=== PATIENT | female | born 1950 | race African-American/Black ===

== ENCOUNTER 2016-11-16 08:36 | Inpatient (IN) | payer MEDICAID, MEDICARE ==
[~2016-11-16] VITALS: Ht 182.9 cm; Wt 124.6 kg
[~2016-11-16 08:36] MED LIST: ALBU8.5H5 INH; ALLO100T30 PO; ASPI325T4 PO; ATEN100T PO; ATEN50TA41 PO; DARB100D PO; FLUT16SP2 NAS; FLUT9.9S NS; FURO40TA6 PO; HOME OXYGEN INH; HYDR-3240 PO; HYDR25TA11 PO; INSU100I18 SQ-INSULIN; INSU100V; INSU100V3 SQ; LEVO100T5 PO; LOVA40TA2 PO; METO5TAB5 PO; MULT-717 PO; OMEP-110 PO; OMEP20TA62 PO; OXYC5CAP4 PO; OXYM15MI4 NS; POLY17PO5 PO; SODI104S3 NAS; SODI30SP NS; SPIR25TA3 PO; TRAM50TA2 PO; [UNRECOGNIZED DRUG - CODE] SQ
[2016-11-16] MEDS ORDERED: CEFTRIAXONE PMX 2GM/50ML 50 ML IV ONE (10:00)
[2016-11-16] MEDS ORDERED: MORPHINE SULFATE 4 MG/ML, 1ML IVPush PRN (10:00)
[2016-11-16] MEDS ORDERED: SODIUM CHLORIDE FLUSH 10ML SYR IVF ONE (10:00)
[2016-11-16] MEDS ORDERED: ONDANSETRON 2MG/ML, 2ML IVPush ONE (10:00)
[2016-11-16] MEDS ORDERED: ONDANSETRON 2MG/ML, 2ML ONE (10:18)
[2016-11-16] MEDS ORDERED: MORPHINE SULFATE 4 MG/ML, 1ML ONE (10:18)
[2016-11-16 10:41] LABS: ASPARTATE AMINO TRANSFERASE 17 U/L (15-37)
[2016-11-16 10:47] LABS: BLOOD UREA NITROGEN 156 mg/dL (7-18); HEMOGLOBIN 7.1 g/dL (11.7-16.4)
[2016-11-16] MEDS ORDERED: DEXTROSE 50%, 50ML SYRINGE IVPush ONE ×2 (11:00→16:19)
[2016-11-16] MEDS ORDERED: SODIUM CHLORIDE 0.9%, 500ML IVBOLUS ONE (11:00)
[2016-11-16] MEDS ORDERED: INSULIN REGULAR 100 UNITS/ML, 3ML VIAL IVPush ONE (11:00)
[2016-11-16] MEDS ORDERED: SODIUM POLYSTYRENE SULFONATE ORAL SUSP PO ONE ×2 (11:00→16:30)
[2016-11-16] MEDS: HEPARIN 5,000 UNITS/ML, 1ML SQ SCH ×2 (12:00→20:00)
[2016-11-16] MEDS ORDERED: HYDROcodone/APAP 5/325 TABLET PO PRN (12:00)
[2016-11-16] MEDS ORDERED: [UNRECOGNIZED DRUG - OTHER] INH SCH (12:00)
[2016-11-16] MEDS ORDERED: ACETAMINOPHEN 325 MG TABLET PO PRN (12:00)
[2016-11-16] MEDS ORDERED: ONDANSETRON 2MG/ML, 2ML IVP PRN (12:00)
[2016-11-16] MEDS ORDERED: BISACODYL 10 MG SUPP PR PRN (12:00)
[2016-11-16] MEDS ORDERED: ALBUTEROL SULFATE 2.5 MG/3 ML HHN PRN (12:30)
[2016-11-16 12:33] VITALS: BP 142/59
[2016-11-16 12:52] VITALS: BP 142/59
[2016-11-16] MEDS: ALLOPURINOL 100 MG TABLET PO SCH (13:12)
[2016-11-16] MEDS: SPIRONOLACTONE 25 MG TABLET PO SCH (13:12)
[2016-11-16] MEDS: SEVELAMER 800MG TABLET PO SCH ×2 (14:00→16:12)
[2016-11-16] MEDS: INSULIN REGULAR 100 UNITS/ML, 3ML VIAL SQ-INSULIN SCH ×2 (16:00→21:00)
[2016-11-16] MEDS: OXYcodone IR 5MG TABLET PO SCH ×2 (16:09→22:12)
[2016-11-16] MEDS ORDERED: INSULIN REGULAR 100 UNITS/ML, 3ML VIAL IVPush STA (16:19)
[2016-11-16] MEDS ORDERED: SODIUM BICARBONATE 1 MEQ/ML, 50ML VIAL IVPush ONE (16:19)
[2016-11-16 19:34] VITALS: BP 103/34
[2016-11-17 02:18] VITALS: BP 119/75
[2016-11-17] MEDS: HEPARIN 5,000 UNITS/ML, 1ML SQ SCH ×3 (04:00→20:00)
[2016-11-17] MEDS: OXYcodone IR 5MG TABLET PO SCH ×4 (06:09→20:50)
[2016-11-17] MEDS: INSULIN REGULAR 100 UNITS/ML, 3ML VIAL SQ-INSULIN SCH ×4 (07:00→20:50)
[2016-11-17 07:46] VITALS: BP 134/56
[2016-11-17 07:48] LABS: ASPARTATE AMINO TRANSFERASE 19 U/L (15-37); HEMOGLOBIN 7.5 g/dL (11.7-16.4)
[2016-11-17] MEDS: SEVELAMER 800MG TABLET PO SCH ×3 (08:00→16:38)
[2016-11-17 08:04] LABS: BLOOD UREA NITROGEN 169 mg/dL (7-18)
[2016-11-17 08:09] LABS: DIFF TOTAL CELLS COUNTED 100 CELL DIFF
[2016-11-17 08:11] LABS: VERIFY COUNTS? YES
[2016-11-17 08:12] LABS: ANISOCYTOSIS 1+
[2016-11-17 08:13] LABS: LARGE PLATELETS 1+
[2016-11-17] MEDS ORDERED: LEVOTHYROXINE 100 MCG TABLET PO SCH (09:00)
[2016-11-17] MEDS: SPIRONOLACTONE 25 MG TABLET PO SCH (09:00)
[2016-11-17] MEDS: ALBUTEROL/IPRATROPIUM 2.5MG/0.5MG, 3 ML NPPB SCH ×2 (09:00→22:18)
[2016-11-17] MEDS: SENNA/DOCUSATE TABLET PO SCH (09:00)
[2016-11-17] MEDS ORDERED: MULTIVITAMINS/MINERALS TABLET PO SCH (09:00)
[2016-11-17] MEDS ORDERED: LOVASTATIN 40 MG TABLET PO SCH (09:00)
[2016-11-17] MEDS: ALLOPURINOL 100 MG TABLET PO SCH (09:35)
[2016-11-17] MEDS: ASPIRIN 81 MG TABLET EC PO SCH (09:35)
[2016-11-17] MEDS: SODIUM CHLORIDE NASAL SPRAY 45ML BOTTLE NAS SCH (12:29)
[2016-11-17] MEDS: FLUTICASONE NASAL SPRAY 16GM NAS SCH (12:29)
[2016-11-17 13:55] VITALS: BP 97/44
[2016-11-17] MEDS: LOVASTATIN 40 MG TABLET PO SCH (20:50)
[2016-11-17 20:55] VITALS: BP 149/78
[2016-11-18 01:06] VITALS: BP 122/66
[2016-11-18] MEDS: HEPARIN 5,000 UNITS/ML, 1ML SQ SCH ×3 (04:00→20:00)
[2016-11-18 05:37] LABS: HEMOGLOBIN 7.3 g/dL (11.7-16.4)
[2016-11-18 06:03] LABS: BLOOD UREA NITROGEN 112 mg/dL (7-18)
[2016-11-18] MEDS: LEVOTHYROXINE 100 MCG TABLET PO SCH (06:22)
[2016-11-18] MEDS: OXYcodone IR 5MG TABLET PO SCH ×4 (06:22→20:02)
[2016-11-18] MEDS: INSULIN REGULAR 100 UNITS/ML, 3ML VIAL SQ-INSULIN SCH ×4 (07:00→20:02)
[2016-11-18] MEDS: SEVELAMER 800MG TABLET PO SCH (08:00)
[2016-11-18 08:06] VITALS: BP 145/69
[2016-11-18 08:36] LABS: HEP B SURF. AB < 3.1 mIU/mL (0.0-10.0)
[2016-11-18] MEDS: SENNA/DOCUSATE TABLET PO SCH (09:00)
[2016-11-18] MEDS: FLUTICASONE NASAL SPRAY 16GM NAS SCH (09:00)
[2016-11-18] MEDS: SODIUM CHLORIDE NASAL SPRAY 45ML BOTTLE NAS SCH (09:00)
[2016-11-18] MEDS: ALBUTEROL/IPRATROPIUM 2.5MG/0.5MG, 3 ML NPPB SCH (09:00)
[2016-11-18] MEDS: SPIRONOLACTONE 25 MG TABLET PO SCH (09:22)
[2016-11-18] MEDS: FERROUS SULFATE 325 MG TABLET PO SCH ×2 (09:22→17:46)
[2016-11-18] MEDS: ASPIRIN 81 MG TABLET EC PO SCH (09:22)
[2016-11-18] MEDS: ATENOLOL 50 MG TABLET PO SCH (09:22)
[2016-11-18] MEDS: ALLOPURINOL 100 MG TABLET PO SCH (09:22)
[2016-11-18] MEDS ORDERED: CALCIUM ACETATE 667 MG CAPSULE PO SCH (11:30)
[2016-11-18] MEDS: CALCIUM ACETATE 667 MG CAPSULE PO SCH ×2 (12:00→17:46)
[2016-11-18] MEDS ORDERED: ARANESP 100 MCG/ML **ESRD SQ SCH (14:00)
[2016-11-18 15:03] VITALS: BP 157/70
[2016-11-18] MEDS ORDERED: ALBUTEROL/IPRATROPIUM 2.5MG/0.5MG, 3 ML ONE (18:20)
[2016-11-18] MEDS: LOVASTATIN 40 MG TABLET PO SCH (20:02)
[2016-11-18] MEDS: MULTIVITAMINS/MINERALS TABLET PO SCH (20:02)
[2016-11-18 20:10] VITALS: BP 132/83
[2016-11-18] MEDS ORDERED: ALBUTEROL/IPRATROPIUM 2.5MG/0.5MG, 3 ML NPPB PRN (21:00)
[2016-11-19 02:42] VITALS: BP 139/71
[2016-11-19 03:32] LABS: HEMOGLOBIN 7.4 g/dL (11.7-16.4)
[2016-11-19 03:49] LABS: BLOOD UREA NITROGEN 122 mg/dL (7-18)
[2016-11-19] MEDS: HEPARIN 5,000 UNITS/ML, 1ML SQ SCH ×3 (03:58→19:37)
[2016-11-19] MEDS: OXYcodone IR 5MG TABLET PO SCH ×4 (05:26→21:07)
[2016-11-19] MEDS: LEVOTHYROXINE 100 MCG TABLET PO SCH (05:27)
[2016-11-19 06:52] VITALS: BP 132/54
[2016-11-19] MEDS: INSULIN REGULAR 100 UNITS/ML, 3ML VIAL SQ-INSULIN SCH ×4 (07:00→21:14)
[2016-11-19] MEDS: CALCIUM ACETATE 667 MG CAPSULE PO SCH ×3 (08:00→17:00)
[2016-11-19] MEDS: FERROUS SULFATE 325 MG TABLET PO SCH ×2 (08:59→17:45)
[2016-11-19] MEDS: ASPIRIN 81 MG TABLET EC PO SCH (08:59)
[2016-11-19] MEDS: CINACALCET 30 MG TABLET PO SCH (09:00)
[2016-11-19] MEDS: SENNA/DOCUSATE TABLET PO SCH (09:00)
[2016-11-19] MEDS: ALLOPURINOL 100 MG TABLET PO SCH (09:00)
[2016-11-19] MEDS: FLUTICASONE NASAL SPRAY 16GM NAS SCH (09:00)
[2016-11-19] MEDS: SODIUM CHLORIDE NASAL SPRAY 45ML BOTTLE NAS SCH (09:00)
[2016-11-19] MEDS: SPIRONOLACTONE 25 MG TABLET PO SCH (09:00)
[2016-11-19] MEDS: IRON SUCROSE COMPLEX 100MG/5ML IV SCH (09:00)
[2016-11-19 12:42] VITALS: BP 130/50
[2016-11-19 20:22] VITALS: BP 141/65
[2016-11-19] MEDS: LOVASTATIN 40 MG TABLET PO SCH (21:07)
[2016-11-19] MEDS: MULTIVITAMINS/MINERALS TABLET PO SCH (21:08)
[2016-11-20 03:00] VITALS: BP 142/76
[2016-11-20] MEDS: HEPARIN 5,000 UNITS/ML, 1ML SQ SCH ×3 (04:00→20:00)
[2016-11-20 05:27] LABS: BLOOD UREA NITROGEN 72 mg/dL (7-18)
[2016-11-20 05:31] LABS: HEMOGLOBIN 7.3 g/dL (11.7-16.4)
[2016-11-20] MEDS: OXYcodone IR 5MG TABLET PO SCH ×4 (06:16→22:33)
[2016-11-20] MEDS: LEVOTHYROXINE 100 MCG TABLET PO SCH (06:16)
[2016-11-20 06:52] VITALS: BP 156/62
[2016-11-20] MEDS: INSULIN REGULAR 100 UNITS/ML, 3ML VIAL SQ-INSULIN SCH ×4 (07:00→21:00)
[2016-11-20] MEDS: CALCIUM ACETATE 667 MG CAPSULE PO SCH ×3 (08:00→17:00)
[2016-11-20] MEDS: FLUTICASONE NASAL SPRAY 16GM NAS SCH (08:17)
[2016-11-20] MEDS: SODIUM CHLORIDE NASAL SPRAY 45ML BOTTLE NAS SCH (08:18)
[2016-11-20] MEDS: ALLOPURINOL 100 MG TABLET PO SCH (08:19)
[2016-11-20] MEDS: CINACALCET 30 MG TABLET PO SCH (08:19)
[2016-11-20] MEDS: FERROUS SULFATE 325 MG TABLET PO SCH ×2 (08:19→17:00)
[2016-11-20] MEDS: SPIRONOLACTONE 25 MG TABLET PO SCH (08:20)
[2016-11-20] MEDS: ASPIRIN 81 MG TABLET EC PO SCH (08:20)
[2016-11-20] MEDS: ATENOLOL 50 MG TABLET PO SCH ×2 (08:20→09:00)
[2016-11-20] MEDS: SENNA/DOCUSATE TABLET PO SCH (08:21)
[2016-11-20] MEDS: IRON SUCROSE COMPLEX 100MG/5ML IV SCH (08:21)
[2016-11-20] MEDS ORDERED: PARICALCITOL 2 MCG/ML, 1ML IVPush PRN (09:00)
[2016-11-20 12:45] VITALS: BP 187/71
[2016-11-20 20:17] VITALS: BP 169/70
[2016-11-20] MEDS: MULTIVITAMINS/MINERALS TABLET PO SCH (21:00)
[2016-11-20] MEDS: LOVASTATIN 40 MG TABLET PO SCH (22:33)
[2016-11-21 02:50] VITALS: BP 126/58
[2016-11-21] MEDS: HEPARIN 5,000 UNITS/ML, 1ML SQ SCH ×3 (04:00→20:00)
[2016-11-21] MEDS: LEVOTHYROXINE 100 MCG TABLET PO SCH (05:43)
[2016-11-21] MEDS: OXYcodone IR 5MG TABLET PO SCH ×4 (05:43→20:33)
[2016-11-21] MEDS: INSULIN REGULAR 100 UNITS/ML, 3ML VIAL SQ-INSULIN SCH ×4 (07:00→20:27)
[2016-11-21 07:12] VITALS: BP 123/71
[2016-11-21] MEDS: CALCIUM ACETATE 667 MG CAPSULE PO SCH ×3 (08:00→17:00)
[2016-11-21] MEDS: FERROUS SULFATE 325 MG TABLET PO SCH ×2 (08:00→17:00)
[2016-11-21] MEDS: SENNA/DOCUSATE TABLET PO SCH (09:00)
[2016-11-21] MEDS: IRON SUCROSE COMPLEX 100MG/5ML IV SCH (09:00)
[2016-11-21] MEDS: CINACALCET 30 MG TABLET PO SCH (09:00)
[2016-11-21] MEDS: FLUTICASONE NASAL SPRAY 16GM NAS SCH (09:47)
[2016-11-21] MEDS: SODIUM CHLORIDE NASAL SPRAY 45ML BOTTLE NAS SCH (09:48)
[2016-11-21] MEDS: ASPIRIN 81 MG TABLET EC PO SCH (09:49)
[2016-11-21] MEDS: ALLOPURINOL 100 MG TABLET PO SCH (09:50)
[2016-11-21] MEDS: SPIRONOLACTONE 25 MG TABLET PO SCH (09:51)
[2016-11-21] MEDS ORDERED: MINO2.5T PO (10:01)
[2016-11-21] MEDS ORDERED: ATEN25TA PO (10:01)
[2016-11-21 12:37] VITALS: BP 168/61
[2016-11-21] MEDS: MULTIVITAMINS/MINERALS TABLET PO SCH (20:28)
[2016-11-21] MEDS: LOVASTATIN 40 MG TABLET PO SCH (20:33)
[2016-11-21 20:40] VITALS: BP 192/76
[2016-11-21] MEDS: ATENOLOL 50 MG TABLET PO SCH (21:33)
[2016-11-21 23:38] VITALS: BP 186/74
[2016-11-22] MEDS ORDERED: hydrALAzine 20 MG/ML, 1ML IV PRN
[2016-11-22 01:45] VITALS: BP 110/57
[2016-11-22] MEDS: HEPARIN 5,000 UNITS/ML, 1ML SQ SCH (04:00)
[2016-11-22] MEDS: LEVOTHYROXINE 100 MCG TABLET PO SCH (05:56)
[2016-11-22] MEDS: OXYcodone IR 5MG TABLET PO SCH ×2 (05:56→11:26)
[2016-11-22] MEDS: INSULIN REGULAR 100 UNITS/ML, 3ML VIAL SQ-INSULIN SCH ×2 (07:00→11:00)
[2016-11-22 08:31] VITALS: BP 126/45
[2016-11-22] MEDS: ALLOPURINOL 100 MG TABLET PO SCH (08:53)
[2016-11-22] MEDS: ASPIRIN 81 MG TABLET EC PO SCH (08:54)
[2016-11-22] MEDS: SPIRONOLACTONE 25 MG TABLET PO SCH (08:55)
[2016-11-22] MEDS: FLUTICASONE NASAL SPRAY 16GM NAS SCH (08:56)
[2016-11-22] MEDS ORDERED: CINA30TA PO (09:51)
[2016-11-22] MEDS ORDERED: FERR325T20 PO (09:51)
[2016-11-22] MEDS ORDERED: CALC667C PO (09:51)
[2016-11-22 13:23] VITALS: BP 155/72
== END 2016-11-22 13:02 | disposition home health service (06) | DRG 291 ==
LOC: ED 09:54 → EDIP 10:57 → 4WST 12:02 → 4EST 14:34
PROVIDERS: ADMIT Internal Medicine; ATTEND Internal Medicine
PROC: 02HV33Z Insertion of Infusion Device into Superior Vena Cava, Percutaneous Approach (ICD-10-PCS; principal; 2016-11-16)
PROC: B548ZZA Ultrasonography of Superior Vena Cava, Guidance (ICD-10-PCS; 2016-11-16)
PROC: 5A1D60Z (ICD-10-PCS; 2016-11-17)
DX: I13.2 Hypertensive heart and chronic kidney disease with heart failure and with stage 5 chronic kidney disease, or end stage renal disease (principal); J96.21 Acute and chronic respiratory failure with hypoxia; N18.6 End stage renal disease; J98.11 Atelectasis; E44.0 Moderate protein-calorie malnutrition; D68.69 Other thrombophilia; E87.70 Fluid overload, unspecified; I50.9 Heart failure, unspecified; D63.1 Anemia in chronic kidney disease; E03.9 Hypothyroidism, unspecified; E11.22 Type 2 diabetes mellitus with diabetic chronic kidney disease; E11.65 Type 2 diabetes mellitus with hyperglycemia; E78.5 Hyperlipidemia, unspecified; E87.5 Hyperkalemia; I25.10 Atherosclerotic heart disease of native coronary artery without angina pectoris; E83.39 Other disorders of phosphorus metabolism; I48.0 Paroxysmal atrial fibrillation; S81.801A Unspecified open wound, right lower leg, initial encounter; J44.9 Chronic obstructive pulmonary disease, unspecified; M10.9 Gout, unspecified; Z66 Do not resuscitate; Z79.4 Long term (current) use of insulin; Z86.73 Personal history of transient ischemic attack (TIA), and cerebral infarction without residual deficits; Z89.512 Acquired absence of left leg below knee; Z90.49 Acquired absence of other specified parts of digestive tract; Z91.14 Patient's other noncompliance with medication regimen; Z93.3 Colostomy status; Z99.2 Dependence on renal dialysis; Z99.81 Dependence on supplemental oxygen; Z68.37 Body mass index [BMI] 37.0-37.9, adult; Z88.6 Allergy status to analgesic agent; Z88.0 Allergy status to penicillin; Z88.2 Allergy status to sulfonamides; Z88.8 Allergy status to other drugs, medicaments and biological substances
CPT/HCPCS: 36415; 36569; 71010; 76937; 77001; 80048; 80053; 80069; 81001; 82728; 82962; 83540; 83550; 83605; 83735; 83880; 83970; 84100; 84145; 85025; 85045; 85730; 86704; 86706; 87086; 87340; 93005; 94640; 99285; J1815; J7620; C1751; Q0177

== ENCOUNTER 2017-02-28 19:12 | Inpatient (IN) | payer MEDICARE ==
[~2017-02-28] VITALS: Ht 182.9 cm; Wt 102.6 kg
[~2017-02-28 19:12] MED LIST changes: +ATEN25TA PO; +CALC667C PO; +CINA30TA PO; +FERR325T20 PO; +MINO2.5T PO
[2017-02-28] MEDS: PLEASE ENTER HEIGHT AND WEIGHT MC SCH (19:30)
[2017-02-28] MEDS ORDERED: SODIUM CHLORIDE FLUSH 10ML SYR IVF ONE (19:30)
[2017-02-28] MEDS ORDERED: ONDANSETRON 2MG/ML, 2ML IVPush ONE (19:30)
[2017-02-28 19:56] LABS: ASPARTATE AMINO TRANSFERASE 16 U/L (15-37); BLOOD UREA NITROGEN 53 mg/dL (7-18)
[2017-02-28 20:09] LABS: DIFF TOTAL CELLS COUNTED 100 CELL DIFF
[2017-02-28 20:12] LABS: VERIFY COUNTS? YES
[2017-02-28 20:13] LABS: ANISOCYTOSIS 1+; MICROCYTOSIS 1+; OVALOCYTES 1+; SCHISTOCYTES 1+; SPHEROCYTES 1+
[2017-02-28 20:14] LABS: LARGE PLATELETS 1+; POLYCHROMASIA 1+
[2017-02-28] MEDS ORDERED: ONDANSETRON 2MG/ML, 2ML ONE (20:31)
[2017-02-28] MEDS ORDERED: HYDROmorphone 1 MG/ML, 1ML ONE ×2 (20:31→22:19)
[2017-02-28] MEDS: HYDROmorphone 1 MG/ML, 1ML IVPush PRN ×2 (20:46→22:25)
[2017-02-28] MEDS ORDERED: VANCOMYCIN 2,000 MG in SODIUM CHLORIDE 0.9% 500 ML IV ONE (21:00)
[2017-02-28] MEDS ORDERED: SODIUM CHLORIDE FLUSH 10ML SYR IVF PRN (21:00)
[2017-02-28] MEDS ORDERED: VANCOMYCIN PER PHARMACY MC ONE (21:00)
[2017-02-28] MEDS ORDERED: CEFEPIME 1 GM in DEXTROSE 5% 50 ML IV ONE (21:00)
[2017-02-28] MEDS ORDERED: PHARMACOKINETIC CONSULTATION MC ONE (21:00)
[2017-02-28] MEDS ORDERED: ACETAMINOPHEN 500 MG TABLET ONE (21:43)
[2017-02-28] MEDS ORDERED: MEROPENEM 500 MG in SODIUM CHLORIDE 0.9% 100 ML IV ONE (22:00)
[2017-02-28] MEDS ORDERED: ACETAMINOPHEN 500 MG TABLET PO ONE (22:00)
[2017-02-28] MEDS ORDERED: VANCOMYCIN PER PHARMACY MC PRN (22:00)
[2017-02-28] MEDS ORDERED: hydrALAzine 20 MG/ML, 1ML IVPush PRN (22:30)
[2017-02-28] MEDS ORDERED: BISACODYL 10 MG SUPP PR PRN (22:30)
[2017-02-28] MEDS ORDERED: ONDANSETRON 2MG/ML, 2ML IVPush PRN (22:30)
[2017-02-28] MEDS ORDERED: ACETAMINOPHEN 325 MG TABLET PO PRN (22:30)
[2017-02-28] MEDS ORDERED: MEROPENEM 500 MG in SODIUM CHLORIDE 0.9% 100 ML IV PRN (22:30)
[2017-02-28] MEDS ORDERED: POLYETHYLENE GLYCOL 17 GM PACKET PO PRN (22:30)
[2017-02-28] MEDS ORDERED: morphine SULFATE 10 MG/ML, 1ML IVPush PRN (22:30)
[2017-02-28] MEDS ORDERED: [UNRECOGNIZED DRUG - OTHER] INH SCH (22:30)
[2017-02-28] MEDS ORDERED: ALBUTEROL SULFATE INH PRN (22:30)
[2017-02-28] MEDS ORDERED: LABETALOL 5MG/ML, 20ML IVPush PRN (22:30)
[2017-02-28] MEDS: FLONASE MC SCH (23:45)
[2017-03-01] VITALS (8 sets, daily range): BP systolic 94–164; BP diastolic 52–71
[2017-03-01] MEDS ORDERED: PHARMACOKINETIC MONITORING MC PRN (00:30)
[2017-03-01] MEDS ORDERED: PHARMACOKINETIC CONSULTATION MC ONE (00:30)
[2017-03-01] MEDS: PLEASE ENTER HEIGHT AND WEIGHT MC SCH ×2 (01:23→07:34)
[2017-03-01] MEDS: HEPARIN 5,000 UNITS/ML, 1ML SQ SCH ×3 (01:33→18:16)
[2017-03-01 06:11] LABS: BLOOD UREA NITROGEN 54 mg/dL (7-18)
[2017-03-01 06:14] LABS: ASPARTATE AMINO TRANSFERASE 13 U/L (15-37)
[2017-03-01] MEDS: INSULIN ASPART 100 UNITS/ML, PEN SQ-INSULIN SCH ×4 (07:00→20:29)
[2017-03-01] MEDS: FLONASE MC SCH (07:34)
[2017-03-01] MEDS: CALCIUM ACETATE 667 MG CAPSULE PO SCH ×3 (08:00→17:00)
[2017-03-01] MEDS: ALBUTEROL/IPRATROPIUM 2.5MG/0.5MG, 3 ML NPPB SCH ×2 (09:00→21:00)
[2017-03-01] MEDS: CINACALCET 30 MG TABLET PO SCH (09:00)
[2017-03-01] MEDS ORDERED: [UNRECOGNIZED DRUG - REMARK] NS SCH (09:00)
[2017-03-01] MEDS: LEVOTHYROXINE 100 MCG TABLET PO SCH (09:29)
[2017-03-01] MEDS: SENNA/DOCUSATE TABLET PO SCH (09:29)
[2017-03-01] MEDS: ALLOPURINOL 100 MG TABLET PO SCH (09:29)
[2017-03-01] MEDS: MULTIVITAMIN 1 TABLET PO SCH (09:30)
[2017-03-01] MEDS: ASPIRIN 325 MG TABLET PO SCH (09:30)
[2017-03-01] MEDS: SPIRONOLACTONE 25 MG TABLET PO SCH (09:30)
[2017-03-01] MEDS: LOVASTATIN 40 MG TABLET PO SCH (09:30)
[2017-03-01] MEDS: MINOXIDIL 2.5 MG TABLET PO SCH (09:32)
[2017-03-01] MEDS: OXYcodone IR 5MG TABLET PO PRN (09:32)
[2017-03-01] MEDS: FLUTICASONE NASAL SPRAY 16GM NAS SCH (09:32)
[2017-03-01] MEDS: FERROUS SULFATE 325 MG TABLET PO SCH ×2 (09:37→17:00)
[2017-03-01 11:15] LABS: OCCBLD OBC PASS
[2017-03-02] MEDS: HEPARIN 5,000 UNITS/ML, 1ML SQ SCH ×3 (01:47→17:40)
[2017-03-02 02:00] VITALS: BP 130/57
[2017-03-02] MEDS: OXYcodone IR 5MG TABLET PO PRN ×2 (05:28→16:44)
[2017-03-02 05:35] LABS: ASPARTATE AMINO TRANSFERASE 25 U/L (15-37); BLOOD UREA NITROGEN 71 mg/dL (7-18)
[2017-03-02 06:52] VITALS: BP 125/67
[2017-03-02] MEDS: INSULIN ASPART 100 UNITS/ML, PEN SQ-INSULIN SCH ×4 (07:00→21:00)
[2017-03-02 08:25] LABS: HEP B SURF. AB 5.7 mIU/mL (0.0-10.0)
[2017-03-02] MEDS: SPIRONOLACTONE 25 MG TABLET PO SCH (08:28)
[2017-03-02] MEDS: FERROUS SULFATE 325 MG TABLET PO SCH ×2 (08:29→17:41)
[2017-03-02] MEDS: MINOXIDIL 2.5 MG TABLET PO SCH (08:29)
[2017-03-02] MEDS: FLUTICASONE NASAL SPRAY 16GM NAS SCH (08:30)
[2017-03-02] MEDS: CALCIUM ACETATE 667 MG CAPSULE PO SCH ×3 (08:30→17:41)
[2017-03-02] MEDS: ASPIRIN 325 MG TABLET PO SCH (08:31)
[2017-03-02] MEDS: SENNA/DOCUSATE TABLET PO SCH (08:31)
[2017-03-02] MEDS: CINACALCET 30 MG TABLET PO SCH (08:32)
[2017-03-02] MEDS: LEVOTHYROXINE 100 MCG TABLET PO SCH (08:32)
[2017-03-02] MEDS: ALLOPURINOL 100 MG TABLET PO SCH (08:33)
[2017-03-02] MEDS: LOVASTATIN 40 MG TABLET PO SCH ×2 (09:00→22:00)
[2017-03-02] MEDS: ALBUTEROL/IPRATROPIUM 2.5MG/0.5MG, 3 ML NPPB SCH ×2 (10:50→22:20)
[2017-03-02] MEDS: GUAIFENESIN ER 600 MG TABLET PO SCH ×2 (11:52→21:00)
[2017-03-02] MEDS ORDERED: VANCOMYCIN 1,800 MG in SODIUM CHLORIDE 0.9% 250 ML IV ONE (17:00)
[2017-03-02 17:37] VITALS: BP 136/69
[2017-03-02] MEDS: MULTIVITAMIN 1 TABLET PO SCH (17:40)
[2017-03-02 20:11] VITALS: BP 157/53
[2017-03-03 02:00] VITALS: BP 166/67
[2017-03-03] MEDS: HEPARIN 5,000 UNITS/ML, 1ML SQ SCH ×3 (02:00→17:52)
[2017-03-03 05:53] LABS: BLOOD UREA NITROGEN 54 mg/dL (7-18)
[2017-03-03] MEDS: FLUTICASONE NASAL SPRAY 16GM NAS SCH (06:23)
[2017-03-03] MEDS: ALBUTEROL/IPRATROPIUM 2.5MG/0.5MG, 3 ML NPPB SCH ×2 (06:35→21:29)
[2017-03-03 06:46] LABS: DIFF TOTAL CELLS COUNTED 100 CELL DIFF
[2017-03-03 06:49] LABS: VERIFY COUNTS? YES
[2017-03-03 06:51] LABS: ANISOCYTOSIS 1+
[2017-03-03 06:52] LABS: HYPOCHROMIA 1+; LARGE PLATELETS 1+; POLYCHROMASIA 1+; TARGET CELLS 1+
[2017-03-03] MEDS: INSULIN ASPART 100 UNITS/ML, PEN SQ-INSULIN SCH ×4 (07:00→21:00)
[2017-03-03 07:07] VITALS: BP 146/75
[2017-03-03] MEDS: SENNA/DOCUSATE TABLET PO SCH (09:00)
[2017-03-03] MEDS: CINACALCET 30 MG TABLET PO SCH (09:00)
[2017-03-03] MEDS: FERROUS SULFATE 325 MG TABLET PO SCH ×2 (09:20→17:52)
[2017-03-03] MEDS: CALCIUM ACETATE 667 MG CAPSULE PO SCH ×3 (09:20→17:52)
[2017-03-03] MEDS: MULTIVITAMIN 1 TABLET PO SCH (09:20)
[2017-03-03] MEDS: SPIRONOLACTONE 25 MG TABLET PO SCH (09:20)
[2017-03-03] MEDS: ASPIRIN 325 MG TABLET PO SCH (09:20)
[2017-03-03] MEDS: MINOXIDIL 2.5 MG TABLET PO SCH (09:21)
[2017-03-03] MEDS: OXYcodone IR 5MG TABLET PO PRN ×2 (09:21→18:15)
[2017-03-03] MEDS: GUAIFENESIN ER 600 MG TABLET PO SCH ×2 (09:21→23:44)
[2017-03-03] MEDS: ALLOPURINOL 100 MG TABLET PO SCH (09:21)
[2017-03-03] MEDS: LEVOTHYROXINE 100 MCG TABLET PO SCH (09:32)
[2017-03-03 12:53] VITALS: BP 173/76
[2017-03-03 20:00] VITALS: BP 182/71
[2017-03-04] MEDS: ALBUTEROL/IPRATROPIUM 2.5MG/0.5MG, 3 ML NPPB SCH ×3 (01:49→20:15)
[2017-03-04 02:00] VITALS: BP 173/76
[2017-03-04] MEDS: HEPARIN 5,000 UNITS/ML, 1ML SQ SCH ×3 (02:07→18:20)
[2017-03-04 05:50] LABS: BLOOD UREA NITROGEN 67 mg/dL (7-18)
[2017-03-04 05:58] LABS: TOTAL IRON BINDING CAPACITY 283 mcg/dL (250-450)
[2017-03-04] MEDS ORDERED: ATENOLOL 50 MG TABLET PO SCH (06:00)
[2017-03-04] MEDS ORDERED: LEVOTHYROXINE 100 MCG TABLET PO SCH (06:00)
[2017-03-04] MEDS: INSULIN ASPART 100 UNITS/ML, PEN SQ-INSULIN SCH ×4 (07:00→21:00)
[2017-03-04 07:16] VITALS: BP 155/71
[2017-03-04] MEDS: OXYcodone IR 5MG TABLET PO PRN (08:01)
[2017-03-04] MEDS: LEVOTHYROXINE 100 MCG TABLET PO SCH (08:10)
[2017-03-04] MEDS: SENNA/DOCUSATE TABLET PO SCH (09:00)
[2017-03-04] MEDS: CINACALCET 30 MG TABLET PO SCH (09:00)
[2017-03-04] MEDS: FLUTICASONE NASAL SPRAY 16GM NAS SCH (10:02)
[2017-03-04] MEDS: GUAIFENESIN ER 600 MG TABLET PO SCH ×2 (10:03→21:00)
[2017-03-04] MEDS: LOVASTATIN 40 MG TABLET PO SCH (10:03)
[2017-03-04] MEDS: SPIRONOLACTONE 25 MG TABLET PO SCH (10:03)
[2017-03-04] MEDS: ASPIRIN 325 MG TABLET PO SCH (10:03)
[2017-03-04] MEDS: MULTIVITAMIN 1 TABLET PO SCH (10:03)
[2017-03-04] MEDS: CALCIUM ACETATE 667 MG CAPSULE PO SCH ×3 (10:03→17:00)
[2017-03-04] MEDS: FERROUS SULFATE 325 MG TABLET PO SCH ×2 (10:04→18:20)
[2017-03-04] MEDS: MINOXIDIL 2.5 MG TABLET PO SCH (10:04)
[2017-03-04] MEDS: ALLOPURINOL 100 MG TABLET PO SCH (10:04)
[2017-03-04 12:25] VITALS: BP 164/79
[2017-03-04 18:07] LABS: OCCBLD OBC PASS
[2017-03-04 20:45] VITALS: BP 172/81
[2017-03-04] MEDS: ATENOLOL 50 MG TABLET PO SCH (22:08)
[2017-03-05] MEDS: OXYcodone IR 5MG TABLET PO PRN ×2 (00:54→12:56)
[2017-03-05] MEDS: HEPARIN 5,000 UNITS/ML, 1ML SQ SCH ×3 (02:00→18:19)
[2017-03-05 02:44] VITALS: BP 175/82
[2017-03-05] MEDS: LEVOTHYROXINE 100 MCG TABLET PO SCH (05:59)
[2017-03-05 06:51] VITALS: BP 156/74
[2017-03-05] MEDS: INSULIN ASPART 100 UNITS/ML, PEN SQ-INSULIN SCH ×4 (07:00→21:00)
[2017-03-05] MEDS: CALCIUM ACETATE 667 MG CAPSULE PO SCH ×3 (08:00→16:37)
[2017-03-05] MEDS: ATENOLOL 50 MG TABLET PO SCH ×2 (09:00→21:00)
[2017-03-05] MEDS: GUAIFENESIN ER 600 MG TABLET PO SCH ×3 (09:00→22:07)
[2017-03-05] MEDS: CINACALCET 30 MG TABLET PO SCH (09:00)
[2017-03-05] MEDS: MINOXIDIL 2.5 MG TABLET PO SCH (09:00)
[2017-03-05] MEDS: MULTIVITAMIN 1 TABLET PO SCH (09:00)
[2017-03-05] MEDS: SENNA/DOCUSATE TABLET PO SCH (09:00)
[2017-03-05] MEDS: ALBUTEROL/IPRATROPIUM 2.5MG/0.5MG, 3 ML NPPB SCH ×2 (09:30→21:00)
[2017-03-05] MEDS: FLUTICASONE NASAL SPRAY 16GM NAS SCH (09:50)
[2017-03-05] MEDS: FERROUS SULFATE 325 MG TABLET PO SCH (09:51)
[2017-03-05] MEDS: ALLOPURINOL 100 MG TABLET PO SCH (09:51)
[2017-03-05] MEDS: ASPIRIN 325 MG TABLET PO SCH (09:52)
[2017-03-05] MEDS: SPIRONOLACTONE 25 MG TABLET PO SCH (09:52)
[2017-03-05 10:03] LABS: BLOOD UREA NITROGEN 88 mg/dL (7-18)
[2017-03-05 12:02] VITALS: BP 173/76
[2017-03-05] MEDS: IRON SUCROSE COMPLEX 100MG/5ML IV SCH (12:47)
[2017-03-05 20:00] VITALS: BP 167/78
[2017-03-06] MEDS: HEPARIN 5,000 UNITS/ML, 1ML SQ SCH ×4 (02:00→22:06)
[2017-03-06] MEDS: LOVASTATIN 40 MG TABLET PO SCH ×2 (02:01→22:06)
[2017-03-06 02:08] VITALS: BP 148/77
[2017-03-06] MEDS: OXYcodone IR 5MG TABLET PO PRN ×2 (02:15→10:23)
[2017-03-06 05:51] LABS: ASPARTATE AMINO TRANSFERASE 16 U/L (15-37); BLOOD UREA NITROGEN 64 mg/dL (7-18); TOTAL IRON BINDING CAPACITY 287 mcg/dL (250-450)
[2017-03-06] MEDS: LEVOTHYROXINE 100 MCG TABLET PO SCH (06:28)
[2017-03-06] MEDS: INSULIN ASPART 100 UNITS/ML, PEN SQ-INSULIN SCH ×4 (07:00→21:00)
[2017-03-06] MEDS: CALCIUM ACETATE 667 MG CAPSULE PO SCH (08:00)
[2017-03-06 08:48] VITALS: BP 162/79
[2017-03-06] MEDS: FLUTICASONE NASAL SPRAY 16GM NAS SCH (09:00)
[2017-03-06] MEDS: CINACALCET 30 MG TABLET PO SCH (09:00)
[2017-03-06] MEDS: ALBUTEROL/IPRATROPIUM 2.5MG/0.5MG, 3 ML NPPB SCH ×2 (09:55→19:16)
[2017-03-06] MEDS: IRON SUCROSE COMPLEX 100MG/5ML IV SCH ×2 (10:22→13:36)
[2017-03-06] MEDS: CALCIUM CARBONATE 500 MG TABLET PO SCH ×2 (13:36→17:35)
[2017-03-06] MEDS: ASPIRIN 325 MG TABLET PO SCH (13:37)
[2017-03-06] MEDS: GUAIFENESIN ER 600 MG TABLET PO SCH ×2 (13:37→22:04)
[2017-03-06] MEDS: SPIRONOLACTONE 25 MG TABLET PO SCH (13:37)
[2017-03-06] MEDS: MULTIVITAMIN 1 TABLET PO SCH (13:42)
[2017-03-06] MEDS: ATENOLOL 50 MG TABLET PO SCH ×2 (13:42→21:00)
[2017-03-06] MEDS: MINOXIDIL 2.5 MG TABLET PO SCH (13:42)
[2017-03-06] MEDS: SENNA/DOCUSATE TABLET PO SCH (13:44)
[2017-03-06] MEDS: ALLOPURINOL 100 MG TABLET PO SCH (13:45)
[2017-03-06 14:36] VITALS: BP 148/92
[2017-03-06 20:00] VITALS: BP 122/63
[2017-03-06] MEDS: DOXYCYCLINE 100MG TABLET PO SCH (21:00)
[2017-03-07 02:00] VITALS: BP 175/70
[2017-03-07] MEDS: LEVOTHYROXINE 100 MCG TABLET PO SCH (05:37)
[2017-03-07] MEDS: HEPARIN 5,000 UNITS/ML, 1ML SQ SCH ×4 (05:38→21:31)
[2017-03-07 06:14] LABS: ASPARTATE AMINO TRANSFERASE 12 U/L (15-37); BLOOD UREA NITROGEN 56 mg/dL (7-18)
[2017-03-07] MEDS: INSULIN ASPART 100 UNITS/ML, PEN SQ-INSULIN SCH ×4 (07:00→20:21)
[2017-03-07 07:03] VITALS: BP 129/70
[2017-03-07] MEDS: ALBUTEROL/IPRATROPIUM 2.5MG/0.5MG, 3 ML NPPB SCH ×2 (08:00→21:45)
[2017-03-07] MEDS: CALCIUM CARBONATE 500 MG TABLET PO SCH ×3 (08:23→16:48)
[2017-03-07] MEDS: IRON SUCROSE COMPLEX 100MG/5ML IV SCH (08:23)
[2017-03-07] MEDS: ASPIRIN 325 MG TABLET PO SCH (08:24)
[2017-03-07] MEDS: GUAIFENESIN ER 600 MG TABLET PO SCH ×2 (08:24→21:27)
[2017-03-07] MEDS: MINOXIDIL 2.5 MG TABLET PO SCH ×2 (08:25→09:00)
[2017-03-07] MEDS: MULTIVITAMIN 1 TABLET PO SCH (08:25)
[2017-03-07] MEDS: ALLOPURINOL 100 MG TABLET PO SCH (08:29)
[2017-03-07] MEDS: OXYcodone IR 5MG TABLET PO PRN ×2 (08:30→16:46)
[2017-03-07] MEDS: CINACALCET 30 MG TABLET PO SCH (08:57)
[2017-03-07] MEDS: DOXYCYCLINE 100MG TABLET PO SCH ×3 (08:57→21:27)
[2017-03-07] MEDS: SENNA/DOCUSATE TABLET PO SCH (08:57)
[2017-03-07] MEDS: SPIRONOLACTONE 25 MG TABLET PO SCH (09:00)
[2017-03-07] MEDS: FLUTICASONE NASAL SPRAY 16GM NAS SCH (09:00)
[2017-03-07] MEDS: ATENOLOL 50 MG TABLET PO SCH ×2 (09:00→21:32)
[2017-03-07 14:20] VITALS: BP 120/51
[2017-03-07 20:00] VITALS: BP 175/79
[2017-03-07] MEDS: LOVASTATIN 40 MG TABLET PO SCH (21:32)
[2017-03-08 03:24] VITALS: BP 167/68
[2017-03-08] MEDS: HEPARIN 5,000 UNITS/ML, 1ML SQ SCH ×3 (06:00→14:00)
[2017-03-08] MEDS: LEVOTHYROXINE 100 MCG TABLET PO SCH (06:14)
[2017-03-08] MEDS: INSULIN ASPART 100 UNITS/ML, PEN SQ-INSULIN SCH ×3 (07:00→16:00)
[2017-03-08] MEDS: CALCIUM CARBONATE 500 MG TABLET PO SCH ×3 (08:35→17:58)
[2017-03-08] MEDS: IRON SUCROSE COMPLEX 100MG/5ML IV SCH (08:36)
[2017-03-08] MEDS: FLUTICASONE NASAL SPRAY 16GM NAS SCH (08:36)
[2017-03-08] MEDS: GUAIFENESIN ER 600 MG TABLET PO SCH (08:37)
[2017-03-08] MEDS: MULTIVITAMIN 1 TABLET PO SCH (08:37)
[2017-03-08] MEDS: MINOXIDIL 2.5 MG TABLET PO SCH (08:37)
[2017-03-08] MEDS: ASPIRIN 325 MG TABLET PO SCH (08:37)
[2017-03-08] MEDS: SPIRONOLACTONE 25 MG TABLET PO SCH (08:37)
[2017-03-08] MEDS: DOXYCYCLINE 100MG TABLET PO SCH (08:38)
[2017-03-08] MEDS: SENNA/DOCUSATE TABLET PO SCH (08:38)
[2017-03-08] MEDS: CINACALCET 30 MG TABLET PO SCH (08:38)
[2017-03-08] MEDS: ALLOPURINOL 100 MG TABLET PO SCH (08:38)
[2017-03-08] MEDS: ATENOLOL 50 MG TABLET PO SCH (08:38)
[2017-03-08] MEDS ORDERED: DOXY100T PO (08:54)
[2017-03-08] MEDS ORDERED: CHOLECALCIFEROL 400 UNITS TABLET PO SCH (09:00)
[2017-03-08] MEDS: ALBUTEROL/IPRATROPIUM 2.5MG/0.5MG, 3 ML NPPB SCH ×2 (09:00→17:21)
[2017-03-08] MEDS ORDERED: OMEP20TA62 PO (09:06)
[2017-03-08] MEDS ORDERED: ASPI-621 PO (09:22)
[2017-03-08] MEDS: OXYcodone IR 5MG TABLET PO PRN ×2 (10:30→17:58)
[2017-03-08 14:38] VITALS: BP 102/59
== END 2017-03-08 22:49 | disposition home or self-care (01) | DRG 871 ==
LOC: ED 20:00 → EDIP 20:42 → 4EST 23:49
PROVIDERS: ADMIT Internal Medicine; ATTEND Internal Medicine
PROC: 5A1D60Z (ICD-10-PCS; principal; 2017-03-02)
PROC: 30233N1 Transfusion of Nonautologous Red Blood Cells into Peripheral Vein, Percutaneous Approach (ICD-10-PCS; 2017-03-02)
DX: A41.9 Sepsis, unspecified organism (principal); J18.0 Bronchopneumonia, unspecified organism; N18.6 End stage renal disease; G93.41 Metabolic encephalopathy; E44.0 Moderate protein-calorie malnutrition; I13.2 Hypertensive heart and chronic kidney disease with heart failure and with stage 5 chronic kidney disease, or end stage renal disease; J44.0 Chronic obstructive pulmonary disease with (acute) lower respiratory infection; J96.10 Chronic respiratory failure, unspecified whether with hypoxia or hypercapnia; D63.1 Anemia in chronic kidney disease; E03.9 Hypothyroidism, unspecified; E11.22 Type 2 diabetes mellitus with diabetic chronic kidney disease; E66.9 Obesity, unspecified; E78.5 Hyperlipidemia, unspecified; I25.10 Atherosclerotic heart disease of native coronary artery without angina pectoris; I48.0 Paroxysmal atrial fibrillation; I48.2 Chronic atrial fibrillation; E87.5 Hyperkalemia; I50.9 Heart failure, unspecified; M10.9 Gout, unspecified; L98.429 Non-pressure chronic ulcer of back with unspecified severity; Z86.73 Personal history of transient ischemic attack (TIA), and cerebral infarction without residual deficits; Z68.30 Body mass index [BMI] 30.0-30.9, adult; Z87.891 Personal history of nicotine dependence; Z89.512 Acquired absence of left leg below knee; Z90.49 Acquired absence of other specified parts of digestive tract; Z91.19 Patient's noncompliance with other medical treatment and regimen; Z93.3 Colostomy status; Z99.2 Dependence on renal dialysis; Z88.5 Allergy status to narcotic agent; Z88.0 Allergy status to penicillin; Z88.2 Allergy status to sulfonamides; Z88.8 Allergy status to other drugs, medicaments and biological substances; Z88.6 Allergy status to analgesic agent; Z88.1 Allergy status to other antibiotic agents; Z91.040 Latex allergy status; Z83.3 Family history of diabetes mellitus; Z80.3 Family history of malignant neoplasm of breast
CPT/HCPCS: 36415; 71010; 80048; 80053; 80061; 80069; 80202; 82272; 82306; 82728; 82962; 83036; 83540; 83550; 83605; 83735; 83880; 83970; 84100; 84145; 84146; 84439; 84443; 85014; 85018; 85025; 85610; 85730; 86704; 86706; 86850; 86900; 86923; 87040; 87070; 87205; 87340; 94640; 96365; 96375; 96376; J0692; J1170; J1644; J1756; J1815; J2185; J2405; J3370; J7620; J7040; J7050; P9016; Q0177

== ENCOUNTER 2017-03-22 00:33 | Inpatient (IN) | payer MEDICARE, OTHER ==
[~2017-03-22] VITALS: Ht 185.4 cm; Wt 121.5 kg
[2017-03-22] VITALS (14 sets, daily range): BP systolic 108–137; BP diastolic 54–73
[~2017-03-22 00:33] MED LIST changes: +ASPI-621 PO; +DOXY100T PO
[2017-03-22 01:47] LABS: WHITE BLOOD COUNT 14.1 x10^3/uL (3.4-10)
[2017-03-22 01:51] LABS: HEMATOCRIT 19.4 % (34.6-47.8); HEMOGLOBIN 6.1 g/dL (11.7-16.4)
[2017-03-22 02:52] LABS: ASPARTATE AMINO TRANSFERASE 9 U/L (15-37); BLOOD UREA NITROGEN 92 mg/dL (7-18)
[2017-03-22] MEDS ORDERED: PANTOPRAZOLE 40 MG IV ONE (03:10)
[2017-03-22] MEDS ORDERED: ONDANSETRON 2MG/ML, 2ML IV PRN (05:30)
[2017-03-22] MEDS ORDERED: MAGNESIUM HYDROXIDE 8%, 30ML UDC PO PRN (05:30)
[2017-03-22] MEDS ORDERED: DEXTROSE 50%, 50ML SYRINGE IVPush PRN (05:30)
[2017-03-22] MEDS ORDERED: GLUCAGON 1 MG IM PRN (05:30)
[2017-03-22] MEDS ORDERED: MORPHINE SULFATE 4 MG/ML, 1ML IV PRN (05:30)
[2017-03-22] MEDS ORDERED: DEXTROSE 4 GM TAB.CHEW PO PRN (05:30)
[2017-03-22] MEDS ORDERED: PANTOPRAZOLE 80 MG in SODIUM CHLORIDE 0.9% 100 ML IV SCH (05:30)
[2017-03-22] MEDS ORDERED: hydrALAzine 20 MG/ML, 1ML IV PRN (05:30)
[2017-03-22] MEDS ORDERED: ACETAMINOPHEN 325 MG TABLET PO PRN (06:00)
[2017-03-22] MEDS: INSULIN REGULAR, HUMAN 100 UNIT/ML 3ML VIAL LOW DOSE SS SQ-INSULIN SCH ×4 (06:11→23:49)
[2017-03-22] MEDS: SODIUM CHLORIDE FLUSH 3ML SYRINGE IVF SCH ×2 (09:00→21:00)
[2017-03-22] MEDS: SODIUM CHLORIDE FLUSH 10ML SYR IVF SCH ×2 (09:00→23:48)
[2017-03-22 11:55] LABS: HEMOGLOBIN 7.9 g/dL (11.7-16.4); WHITE BLOOD COUNT 12.2 x10^3/uL (3.4-10)
[2017-03-22] MEDS ORDERED: GLYCOPYRROLATE 0.2MG/1ML ONE (12:03)
[2017-03-22] MEDS ORDERED: PROPOFOL 10 MG/ML, 20ML ONE (12:03)
[2017-03-22] MEDS ORDERED: LIDOCAINE 4% TOPICAL SOLUTION 50 ML ONE (12:03)
[2017-03-22] MEDS ORDERED: MIDAZOLAM 1 MG/ML, 2ML ONE (12:14)
[2017-03-22] MEDS ORDERED: FENTANYL PF 100 MCG/2ML ONE (12:58)
[2017-03-22] MEDS ORDERED: LABETALOL 5MG/ML, 20ML IV PRN (13:00)
[2017-03-22] MEDS ORDERED: ALBUTEROL SULFATE 2.5 MG/3 ML NPPB PRN (13:00)
[2017-03-22] MEDS ORDERED: FENTANYL PF 100 MCG/2ML IV PRN (13:00)
[2017-03-22] MEDS ORDERED: ONDANSETRON 2MG/ML, 2ML IVPush PRN (13:00)
[2017-03-22] MEDS ORDERED: EPHEDRINE 50 MG/ML, 1ML IVPush PRN (13:00)
[2017-03-22] MEDS: LEVOTHYROXINE 100 MCG TABLET PO SCH (13:55)
[2017-03-22] MEDS: HYDROcodone/APAP 5/325 TABLET PO PRN (14:49)
[2017-03-22] MEDS ORDERED: GOLYTELY 4,000ML ORAL.SOL ONE (17:22)
[2017-03-22] MEDS ORDERED: GOLYTELY 4,000ML ORAL.SOL PO ONE (18:00)
[2017-03-23 01:57] VITALS: BP 137/71
[2017-03-23 05:53] LABS: HEMATOCRIT 24.8 % (34.6-47.8); HEMOGLOBIN 7.9 g/dL (11.7-16.4); WHITE BLOOD COUNT 8.8 x10^3/uL (3.4-10)
[2017-03-23 05:58] LABS: BLOOD UREA NITROGEN 94 mg/dL (7-18)
[2017-03-23] MEDS: LEVOTHYROXINE 100 MCG TABLET PO SCH (05:58)
[2017-03-23] MEDS: HYDROcodone/APAP 5/325 TABLET PO PRN ×2 (05:58→19:49)
[2017-03-23] MEDS: INSULIN REGULAR, HUMAN 100 UNIT/ML 3ML VIAL LOW DOSE SS SQ-INSULIN SCH ×3 (06:04→17:45)
[2017-03-23 06:10] LABS: ASPARTATE AMINO TRANSFERASE 12 U/L (15-37)
[2017-03-23 06:26] LABS: DIFF TOTAL CELLS COUNTED 100 CELL DIFF
[2017-03-23 06:30] LABS: ANISOCYTOSIS 1+; VERIFY COUNTS? YES
[2017-03-23 06:31] LABS: HYPOCHROMIA 1+; OVALOCYTES 1+
[2017-03-23] MEDS: SODIUM CHLORIDE FLUSH 10ML SYR IVF SCH ×2 (09:30→22:11)
[2017-03-23] MEDS: SODIUM CHLORIDE FLUSH 3ML SYRINGE IVF SCH ×2 (09:30→22:11)
[2017-03-23 11:45] VITALS: BP 172/70
[2017-03-23] MEDS ORDERED: PHARMACY MAY ADJ FOR RENAL FX MC PRN (19:00)
[2017-03-23 20:20] VITALS: BP 157/64
[2017-03-23] MEDS: CIPROFLOXACIN 500 MG TABLET PO SCH (22:10)
[2017-03-24] MEDS: INSULIN REGULAR, HUMAN 100 UNIT/ML 3ML VIAL LOW DOSE SS SQ-INSULIN SCH ×5 (00:08→19:50)
[2017-03-24 01:00] VITALS: BP 145/68
[2017-03-24] MEDS: HYDROcodone/APAP 5/325 TABLET PO PRN (01:33)
[2017-03-24] MEDS ORDERED: ALBUTEROL SULFATE 2.5 MG/3 ML ONE (01:42)
[2017-03-24] MEDS: LEVOTHYROXINE 100 MCG TABLET PO SCH (06:38)
[2017-03-24] MEDS: ALBUTEROL SULFATE 2.5 MG/3 ML NPPB SCH ×4 (07:00→19:23)
[2017-03-24] MEDS: ATENOLOL 25 MG TABLET PO SCH (08:47)
[2017-03-24] MEDS: SODIUM CHLORIDE FLUSH 3ML SYRINGE IVF SCH ×2 (09:00→19:44)
[2017-03-24 09:50] VITALS: BP 165/72
[2017-03-24 09:56] LABS: HEP B SURF. AB < 3.1 mIU/mL (0.0-10.0)
[2017-03-24] MEDS: OXYcodone IR 5MG TABLET PO PRN ×2 (09:57→19:45)
[2017-03-24] MEDS: MINOXIDIL 2.5 MG TABLET PO SCH (10:01)
[2017-03-24] MEDS: SODIUM CHLORIDE FLUSH 10ML SYR IVF SCH ×2 (10:02→19:44)
[2017-03-24] MEDS: SPIRONOLACTONE 25 MG TABLET PO SCH (10:03)
[2017-03-24 12:06] LABS: HEMATOCRIT 23.7 % (34.6-47.8); HEMOGLOBIN 7.6 g/dL (11.7-16.4); WHITE BLOOD COUNT 7.1 x10^3/uL (3.4-10)
[2017-03-24 12:18] LABS: BLOOD UREA NITROGEN 64 mg/dL (7-18)
[2017-03-24] MEDS: ARANESP 200 MCG/ML **ESRD SQ SCH (12:27)
[2017-03-24 13:03] VITALS: BP 170/67
[2017-03-24] MEDS: FERROUS SULFATE 325 MG TABLET PO SCH (18:39)
[2017-03-24 19:41] VITALS: BP 160/73
[2017-03-24] MEDS: LOVASTATIN 40 MG TABLET PO SCH (19:45)
[2017-03-24] MEDS: CIPROFLOXACIN 500 MG TABLET PO SCH (19:46)
[2017-03-24] MEDS ORDERED: MORPHINE SULFATE 4 MG/ML, 1ML IV PRN (22:00)
[2017-03-24] MEDS ORDERED: DEXTROSE 4 GM TAB.CHEW PO PRN (22:00)
[2017-03-24] MEDS ORDERED: DEXTROSE 50%, 50ML SYRINGE IVPush PRN (22:00)
[2017-03-24] MEDS ORDERED: hydrALAzine 20 MG/ML, 1ML IV PRN (22:00)
[2017-03-24] MEDS ORDERED: ONDANSETRON 2MG/ML, 2ML IV PRN (22:00)
[2017-03-24] MEDS ORDERED: GLUCAGON 1 MG IM PRN (22:00)
[2017-03-25] VITALS (7 sets, daily range): BP systolic 116–170; BP diastolic 48–78
[2017-03-25] MEDS: OXYcodone IR 5MG TABLET PO PRN ×4 (02:53→22:20)
[2017-03-25] MEDS: ALBUTEROL SULFATE 2.5 MG/3 ML NPPB SCH ×5 (03:13→21:00)
[2017-03-25 05:51] LABS: BLOOD UREA NITROGEN 71 mg/dL (7-18); HEMATOCRIT 20.5 % (34.6-47.8); HEMOGLOBIN 6.7 g/dL (11.7-16.4)
[2017-03-25] MEDS: INSULIN REGULAR, HUMAN 100 UNIT/ML 3ML VIAL LOW DOSE SS SQ-INSULIN SCH ×2 (05:59→12:02)
[2017-03-25] MEDS: LEVOTHYROXINE 100 MCG TABLET PO SCH (06:32)
[2017-03-25] MEDS ORDERED: ALBUTEROL SULFATE 2.5 MG/3 ML ONE ×3 (06:53→13:20)
[2017-03-25] MEDS: ATENOLOL 25 MG TABLET PO SCH ×2 (09:05→09:09)
[2017-03-25] MEDS: SPIRONOLACTONE 25 MG TABLET PO SCH ×2 (09:05→20:24)
[2017-03-25] MEDS: FERROUS SULFATE 325 MG TABLET PO SCH (09:05)
[2017-03-25] MEDS: SODIUM CHLORIDE FLUSH 3ML SYRINGE IVF SCH ×2 (09:06→20:25)
[2017-03-25] MEDS: SODIUM CHLORIDE FLUSH 10ML SYR IVF SCH ×2 (09:06→20:24)
[2017-03-25] MEDS: INSULIN REGULAR 100 UNITS/ML, 3ML VIAL SQ-INSULIN SCH ×2 (16:37→20:23)
[2017-03-25] MEDS: LOVASTATIN 40 MG TABLET PO SCH (20:24)
[2017-03-25] MEDS: CIPROFLOXACIN 500 MG TABLET PO SCH (20:25)
[2017-03-25] MEDS: MINOXIDIL 2.5 MG TABLET PO SCH (20:25)
[2017-03-26] VITALS (8 sets, daily range): BP systolic 109–186; BP diastolic 51–76
[2017-03-26 05:47] LABS: HEMOGLOBIN 7.2 g/dL (11.7-16.4); WHITE BLOOD COUNT 6.2 x10^3/uL (3.4-10)
[2017-03-26 05:52] LABS: HEMATOCRIT 22.6 % (34.6-47.8)
[2017-03-26] MEDS: LEVOTHYROXINE 100 MCG TABLET PO SCH (05:56)
[2017-03-26] MEDS: OXYcodone IR 5MG TABLET PO PRN ×3 (05:56→19:51)
[2017-03-26] MEDS: ATENOLOL 25 MG TABLET PO SCH ×3 (05:59→11:40)
[2017-03-26] MEDS ORDERED: ALBUTEROL SULFATE 2.5 MG/3 ML ONE ×2 (06:36→13:48)
[2017-03-26] MEDS: INSULIN REGULAR 100 UNITS/ML, 3ML VIAL SQ-INSULIN SCH ×4 (07:00→19:59)
[2017-03-26] MEDS: ALBUTEROL SULFATE 2.5 MG/3 ML NPPB SCH ×4 (07:13→20:00)
[2017-03-26] MEDS: SODIUM CHLORIDE FLUSH 10ML SYR IVF SCH ×2 (08:38→19:55)
[2017-03-26] MEDS: SODIUM CHLORIDE FLUSH 3ML SYRINGE IVF SCH ×2 (08:38→19:55)
[2017-03-26] MEDS: SPIRONOLACTONE 25 MG TABLET PO SCH (09:00)
[2017-03-26] MEDS: LOVASTATIN 40 MG TABLET PO SCH ×2 (09:00→19:51)
[2017-03-26] MEDS: MINOXIDIL 2.5 MG TABLET PO SCH (10:24)
[2017-03-26] MEDS: CIPROFLOXACIN 500 MG TABLET PO SCH (19:51)
[2017-03-26] MEDS: CINACALCET 30 MG TABLET PO SCH (19:54)
[2017-03-27 01:21] VITALS: BP 146/55
[2017-03-27] MEDS: OXYcodone IR 5MG TABLET PO PRN ×3 (06:04→21:15)
[2017-03-27] MEDS: ATENOLOL 25 MG TABLET PO SCH ×2 (06:04→17:53)
[2017-03-27] MEDS: LEVOTHYROXINE 100 MCG TABLET PO SCH (06:04)
[2017-03-27 06:28] LABS: HEMATOCRIT 25.6 % (34.6-47.8); HEMOGLOBIN 8.3 g/dL (11.7-16.4); WHITE BLOOD COUNT 6.9 x10^3/uL (3.4-10)
[2017-03-27 06:38] LABS: BLOOD UREA NITROGEN 52 mg/dL (7-18)
[2017-03-27] MEDS: ALBUTEROL SULFATE 2.5 MG/3 ML NPPB SCH ×4 (07:00→20:00)
[2017-03-27] MEDS: INSULIN REGULAR 100 UNITS/ML, 3ML VIAL SQ-INSULIN SCH ×4 (07:00→21:00)
[2017-03-27] MEDS: CINACALCET 30 MG TABLET PO SCH ×3 (08:35→21:14)
[2017-03-27] MEDS: SODIUM CHLORIDE FLUSH 10ML SYR IVF SCH ×2 (08:36→21:13)
[2017-03-27] MEDS: MINOXIDIL 2.5 MG TABLET PO SCH (08:36)
[2017-03-27] MEDS: SPIRONOLACTONE 25 MG TABLET PO SCH (08:36)
[2017-03-27] MEDS: SODIUM CHLORIDE FLUSH 3ML SYRINGE IVF SCH ×2 (08:39→20:02)
[2017-03-27 09:14] VITALS: BP 127/76
[2017-03-27] MEDS: CHOLECALCIFEROL 1,000 UNIT TABLET PO SCH (11:25)
[2017-03-27] MEDS: ALLOPURINOL 100 MG TABLET PO SCH (11:25)
[2017-03-27] MEDS: CALCIUM ACETATE 667 MG CAPSULE PO SCH ×2 (15:52→21:14)
[2017-03-27 16:47] VITALS: BP 146/74
[2017-03-27] MEDS: CIPROFLOXACIN 500 MG TABLET PO SCH (21:13)
[2017-03-27] MEDS: POLYETHYLENE GLYCOL 17 GM PACKET PO SCH (21:14)
[2017-03-28 03:18] VITALS: BP 156/74
[2017-03-28] MEDS: LEVOTHYROXINE 100 MCG TABLET PO SCH (05:21)
[2017-03-28] MEDS: OXYcodone IR 5MG TABLET PO PRN ×3 (05:22→21:20)
[2017-03-28] MEDS: INSULIN REGULAR 100 UNITS/ML, 3ML VIAL SQ-INSULIN SCH ×4 (07:00→21:00)
[2017-03-28 07:42] LABS: HEMATOCRIT 26.7 % (34.6-47.8); HEMOGLOBIN 8.7 g/dL (11.7-16.4)
[2017-03-28 07:52] LABS: BLOOD UREA NITROGEN 59 mg/dL (7-18)
[2017-03-28] MEDS: ALBUTEROL SULFATE 2.5 MG/3 ML NPPB SCH ×4 (07:56→19:17)
[2017-03-28 08:00] VITALS: BP 103/45
[2017-03-28] MEDS: SODIUM CHLORIDE FLUSH 10ML SYR IVF SCH ×2 (08:02→21:20)
[2017-03-28] MEDS: SODIUM CHLORIDE FLUSH 3ML SYRINGE IVF SCH ×2 (08:02→21:00)
[2017-03-28] MEDS: ATENOLOL 25 MG TABLET PO SCH ×2 (08:03→19:00)
[2017-03-28] MEDS: POLYETHYLENE GLYCOL 17 GM PACKET PO SCH ×2 (08:46→21:00)
[2017-03-28] MEDS: LOVASTATIN 40 MG TABLET PO SCH (08:46)
[2017-03-28] MEDS: CINACALCET 30 MG TABLET PO SCH ×3 (08:46→21:20)
[2017-03-28] MEDS: ALLOPURINOL 100 MG TABLET PO SCH (08:46)
[2017-03-28] MEDS: CHOLECALCIFEROL 1,000 UNIT TABLET PO SCH (08:46)
[2017-03-28] MEDS: CALCIUM ACETATE 667 MG CAPSULE PO SCH ×3 (08:46→21:20)
[2017-03-28] MEDS ORDERED: PARICALCITOL 2 MCG/ML, 1ML IVPush PRN (11:00)
[2017-03-28 14:00] VITALS: BP_SYST 108; BP_SYST 77; BP_DIAS 43; BP_DIAS 63
[2017-03-28] MEDS: MINOXIDIL 2.5 MG TABLET PO SCH (14:00)
[2017-03-28 18:38] VITALS: BP 113/44
[2017-03-28] MEDS: CIPROFLOXACIN 500 MG TABLET PO SCH (21:20)
[2017-03-29 05:46] LABS: HEMATOCRIT 24.5 % (34.6-47.8); HEMOGLOBIN 7.8 g/dL (11.7-16.4)
[2017-03-29 05:53] VITALS: BP 115/67
[2017-03-29] MEDS: LEVOTHYROXINE 100 MCG TABLET PO SCH (06:09)
[2017-03-29] MEDS: OXYcodone IR 5MG TABLET PO PRN ×2 (06:09→22:33)
[2017-03-29] MEDS: ATENOLOL 25 MG TABLET PO SCH ×2 (06:09→18:14)
[2017-03-29] MEDS: INSULIN REGULAR 100 UNITS/ML, 3ML VIAL SQ-INSULIN SCH ×4 (07:00→21:00)
[2017-03-29 07:44] VITALS: BP 130/54
[2017-03-29] MEDS: ALBUTEROL SULFATE 2.5 MG/3 ML NPPB SCH ×4 (07:50→20:00)
[2017-03-29] MEDS: SODIUM CHLORIDE FLUSH 3ML SYRINGE IVF SCH ×2 (09:00→21:00)
[2017-03-29] MEDS: POLYETHYLENE GLYCOL 17 GM PACKET PO SCH ×2 (09:00→22:09)
[2017-03-29] MEDS: CALCIUM ACETATE 667 MG CAPSULE PO SCH ×3 (09:00→22:09)
[2017-03-29] MEDS: SODIUM CHLORIDE FLUSH 10ML SYR IVF SCH ×2 (10:00→22:09)
[2017-03-29] MEDS: CHOLECALCIFEROL 1,000 UNIT TABLET PO SCH (10:01)
[2017-03-29] MEDS: ALLOPURINOL 100 MG TABLET PO SCH (10:01)
[2017-03-29] MEDS: CINACALCET 30 MG TABLET PO SCH ×3 (10:01→22:09)
[2017-03-29] MEDS: MINOXIDIL 2.5 MG TABLET PO SCH (10:02)
[2017-03-29] MEDS: LOVASTATIN 40 MG TABLET PO SCH (10:02)
[2017-03-29 11:08] VITALS: BP 116/51
[2017-03-29 11:27] VITALS: BP 115/67
[2017-03-29 14:00] VITALS: BP 115/67
[2017-03-29] MEDS: IRON SUCROSE COMPLEX 100MG/5ML IV SCH (16:12)
[2017-03-29 20:21] VITALS: BP 127/64
[2017-03-29] MEDS: CIPROFLOXACIN 250 MG TABLET PO SCH (22:09)
[2017-03-30 02:00] VITALS: BP 137/70
[2017-03-30 05:15] LABS: HEMATOCRIT 27.6 % (34.6-47.8); HEMOGLOBIN 9.1 g/dL (11.7-16.4); WHITE BLOOD COUNT 7.1 x10^3/uL (3.4-10)
[2017-03-30 05:31] LABS: BLOOD UREA NITROGEN 59 mg/dL (7-18)
[2017-03-30] MEDS: ATENOLOL 25 MG TABLET PO SCH ×2 (06:00→17:51)
[2017-03-30] MEDS: LEVOTHYROXINE 100 MCG TABLET PO SCH (06:33)
[2017-03-30] MEDS: INSULIN REGULAR 100 UNITS/ML, 3ML VIAL SQ-INSULIN SCH ×4 (07:00→21:00)
[2017-03-30] MEDS: ALBUTEROL SULFATE 2.5 MG/3 ML NPPB SCH ×4 (07:00→19:34)
[2017-03-30 07:58] VITALS: BP 151/73
[2017-03-30] MEDS: CALCIUM ACETATE 667 MG CAPSULE PO SCH ×3 (08:18→21:58)
[2017-03-30] MEDS: SODIUM CHLORIDE FLUSH 10ML SYR IVF SCH ×2 (08:18→21:58)
[2017-03-30] MEDS: POLYETHYLENE GLYCOL 17 GM PACKET PO SCH ×2 (08:18→21:00)
[2017-03-30] MEDS: MINOXIDIL 2.5 MG TABLET PO SCH (08:18)
[2017-03-30] MEDS: SODIUM CHLORIDE FLUSH 3ML SYRINGE IVF SCH ×2 (08:18→21:00)
[2017-03-30] MEDS: LOVASTATIN 40 MG TABLET PO SCH (08:18)
[2017-03-30] MEDS: CINACALCET 30 MG TABLET PO SCH ×3 (08:18→21:58)
[2017-03-30] MEDS: ALLOPURINOL 100 MG TABLET PO SCH (08:19)
[2017-03-30] MEDS: CHOLECALCIFEROL 1,000 UNIT TABLET PO SCH (08:19)
[2017-03-30] MEDS: OXYcodone IR 5MG TABLET PO PRN ×2 (09:44→21:58)
[2017-03-30 09:48] LABS: OCCBLD OBC PASS
[2017-03-30 14:45] VITALS: BP 117/66
[2017-03-30] MEDS: IRON SUCROSE COMPLEX 100MG/5ML IV SCH (14:49)
[2017-03-30 20:54] VITALS: BP 153/72
[2017-03-30] MEDS: CIPROFLOXACIN 250 MG TABLET PO SCH (21:58)
[2017-03-31 02:21] VITALS: BP 124/67
[2017-03-31 05:12] VITALS: BP 181/74
[2017-03-31] MEDS: LEVOTHYROXINE 100 MCG TABLET PO SCH (05:14)
[2017-03-31] MEDS: ATENOLOL 25 MG TABLET PO SCH (05:15)
[2017-03-31] MEDS: OXYcodone IR 5MG TABLET PO PRN ×3 (05:31→16:31)
[2017-03-31 05:42] LABS: HEMOGLOBIN 9.9 g/dL (11.7-16.4)
[2017-03-31 06:06] VITALS: BP 125/70
[2017-03-31] MEDS: INSULIN REGULAR 100 UNITS/ML, 3ML VIAL SQ-INSULIN SCH ×3 (07:00→16:00)
[2017-03-31] MEDS: CINACALCET 30 MG TABLET PO SCH ×2 (07:40→09:24)
[2017-03-31 07:44] VITALS: BP 149/74
[2017-03-31] MEDS: ALBUTEROL SULFATE 2.5 MG/3 ML NPPB SCH ×2 (07:50→11:30)
[2017-03-31] MEDS ORDERED: SENNOSIDES 8.6 MG TABLET PO PRN (08:30)
[2017-03-31] MEDS: POLYETHYLENE GLYCOL 17 GM PACKET PO SCH (09:00)
[2017-03-31] MEDS: SODIUM CHLORIDE FLUSH 10ML SYR IVF SCH (09:00)
[2017-03-31] MEDS: SODIUM CHLORIDE FLUSH 3ML SYRINGE IVF SCH (09:15)
[2017-03-31] MEDS ORDERED: SENNA/DOCUSATE TABLET ONE (09:20)
[2017-03-31] MEDS: IRON SUCROSE COMPLEX 100MG/5ML IV SCH (09:23)
[2017-03-31] MEDS: LOVASTATIN 40 MG TABLET PO SCH (09:24)
[2017-03-31] MEDS: MINOXIDIL 2.5 MG TABLET PO SCH (09:24)
[2017-03-31] MEDS: CALCIUM ACETATE 667 MG CAPSULE PO SCH ×2 (09:24→16:00)
[2017-03-31] MEDS: ALLOPURINOL 100 MG TABLET PO SCH (09:25)
[2017-03-31] MEDS: CHOLECALCIFEROL 1,000 UNIT TABLET PO SCH (09:25)
[2017-03-31] MEDS ORDERED: ATEN25TA PO (10:05)
[2017-03-31] MEDS ORDERED: OMEP-110 PO (10:05)
[2017-03-31] MEDS ORDERED: POLY17PO5 PO (10:05)
[2017-03-31] MEDS ORDERED: OXYcodone IR 5MG TABLET PO ONE (11:00)
[2017-03-31] MEDS ORDERED: SENNA/DOCUSATE TABLET PO PRN (11:00)
[2017-03-31] MEDS: ARANESP 200 MCG/ML **ESRD SQ SCH (12:46)
[2017-03-31 12:52] VITALS: BP 155/70
== END 2017-03-31 17:17 | disposition home or self-care (01) | DRG 377 ==
LOC: ED 00:52 → EDIP 03:09 → 5SO 04:55 → 4EST 03-25 19:44
PROC: 30233N1 Transfusion of Nonautologous Red Blood Cells into Peripheral Vein, Percutaneous Approach (ICD-10-PCS; 2017-03-22)
PROC: 0DJD8ZZ Inspection of Lower Intestinal Tract, Via Natural or Artificial Opening Endoscopic (ICD-10-PCS; 2017-03-22)
PROC: 0DJ08ZZ Inspection of Upper Intestinal Tract, Via Natural or Artificial Opening Endoscopic (ICD-10-PCS; principal; 2017-03-22 12:00)
PROC: 5A1D60Z (ICD-10-PCS; 2017-03-26)
DX: K92.1 Melena (principal); N18.6 End stage renal disease; E43 Unspecified severe protein-calorie malnutrition; I13.2 Hypertensive heart and chronic kidney disease with heart failure and with stage 5 chronic kidney disease, or end stage renal disease; J96.10 Chronic respiratory failure, unspecified whether with hypoxia or hypercapnia; D68.9 Coagulation defect, unspecified; E11.22 Type 2 diabetes mellitus with diabetic chronic kidney disease; E11.42 Type 2 diabetes mellitus with diabetic polyneuropathy; D62 Acute posthemorrhagic anemia; I50.30 Unspecified diastolic (congestive) heart failure; L03.115 Cellulitis of right lower limb; N39.0 Urinary tract infection, site not specified; B96.20 Unspecified Escherichia coli [E. coli] as the cause of diseases classified elsewhere; D63.1 Anemia in chronic kidney disease; E03.9 Hypothyroidism, unspecified; E66.01 Morbid (severe) obesity due to excess calories; E78.5 Hyperlipidemia, unspecified; G89.29 Other chronic pain; I25.10 Atherosclerotic heart disease of native coronary artery without angina pectoris; I48.91 Unspecified atrial fibrillation; B96.5 Pseudomonas (aeruginosa) (mallei) (pseudomallei) as the cause of diseases classified elsewhere; B96.1 Klebsiella pneumoniae [K. pneumoniae] as the cause of diseases classified elsewhere; M10.9 Gout, unspecified; Z79.82 Long term (current) use of aspirin; Z86.14 Personal history of Methicillin resistant Staphylococcus aureus infection; Z86.73 Personal history of transient ischemic attack (TIA), and cerebral infarction without residual deficits; Z87.11 Personal history of peptic ulcer disease; Z89.511 Acquired absence of right leg below knee; Z89.512 Acquired absence of left leg below knee; Z91.14 Patient's other noncompliance with medication regimen; Z99.2 Dependence on renal dialysis; Z99.81 Dependence on supplemental oxygen; Z88.6 Allergy status to analgesic agent; Z88.0 Allergy status to penicillin; Z88.2 Allergy status to sulfonamides; Z88.8 Allergy status to other drugs, medicaments and biological substances; Z93.3 Colostomy status; Z68.35 Body mass index [BMI] 35.0-35.9, adult
CPT/HCPCS: 36415; 71010; 80048; 80053; 80069; 81001; 82272; 82306; 82728; 82962; 83036; 83540; 83550; 83880; 83970; 84443; 85014; 85018; 85025; 85610; 86677; 86706; 86850; 86900; 86923; 87040; 87070; 87077; 87086; 87186; 87205; 87340; 93306; 94640; J0882; J1756; J1815; J2250; J2704; J3490; J7613; C9113; P9016; Q0177

== ENCOUNTER 2017-04-18 08:33 | Inpatient (IN) | payer MEDICARE, OTHER ==
[~2017-04-18] VITALS: Ht 182.9 cm; Wt 90.5 kg
[~2017-04-18 08:33] MED LIST changes: +ASPI325T17 PO; -ASPI325T4 PO; -CINA30TA PO; +CINA30TA2 PO; +FERR325T18 PO; -FERR325T20 PO; +OXYC5CAP2 PO; -OXYC5CAP4 PO; +[UNRECOGNIZED DRUG - CODE] SQ; -[UNRECOGNIZED DRUG - CODE] SQ
[2017-04-18] MEDS ORDERED: SODIUM CHLORIDE FLUSH 10ML SYR IVF ONE (09:00)
[2017-04-18 09:11] LABS: HEMATOCRIT 33.9 % (34.6-47.8); HEMOGLOBIN 10.8 g/dL (11.7-16.4)
[2017-04-18 09:25] LABS: ASPARTATE AMINO TRANSFERASE 14 U/L (15-37)
[2017-04-18 09:40] LABS: IS PT STATUS REG ER OR PRE ER? YES
[2017-04-18 09:42] LABS: BLOOD UREA NITROGEN 132 mg/dL (7-18)
[2017-04-18] MEDS ORDERED: INSULIN REGULAR 100 UNITS/ML, 3ML VIAL IVPush ONE (10:00)
[2017-04-18] MEDS ORDERED: DEXTROSE 50%, 50ML SYRINGE IVPush ONE (10:00)
[2017-04-18] MEDS ORDERED: CALCIUM CHLORIDE 10%, 10ML SYR IVPush ONE (10:00)
[2017-04-18] MEDS ORDERED: SODIUM BICARB 8.4%, 50ML SYRINGE IVPush ONE (10:00)
[2017-04-18] MEDS ORDERED: CALCIUM CHLORIDE 10%, 10ML SYR ONE (10:15)
[2017-04-18] MEDS ORDERED: DEXTROSE 50%, 50ML VIAL ONE (10:15)
[2017-04-18] MEDS ORDERED: INSULIN SINGLE DOSE, ER SQ-INSULIN ONE (10:15)
[2017-04-18] MEDS ORDERED: ALBUTEROL/IPRATROPIUM 2.5MG/0.5MG, 3 ML ONE (10:23)
[2017-04-18] MEDS ORDERED: ALBUTEROL/IPRATROPIUM 2.5MG/0.5MG, 3 ML NEB ONE (10:30)
[2017-04-18] MEDS ORDERED: SODIUM CHLORIDE FLUSH 10ML SYR IVF PRN (11:00)
[2017-04-18] MEDS ORDERED: ONDANSETRON ODT 4 MG PO PRN (11:30)
[2017-04-18] MEDS ORDERED: PIPERACILLIN/TAZO 0.75 GM in SODIUM CHLORIDE 0.9% 50 ML IV SCH ×2 (11:30→13:00)
[2017-04-18] MEDS ORDERED: ALBUTEROL SULFATE INH PRN (11:30)
[2017-04-18] MEDS ORDERED: ONDANSETRON 2MG/ML, 2ML IVPush PRN (11:30)
[2017-04-18] MEDS ORDERED: FUROSEMIDE 40 MG/4 ML IV ONE (11:30)
[2017-04-18 11:41] VITALS: BP 132/69
[2017-04-18] MEDS ORDERED: PHARMACOKINETIC CONSULTATION MC ONE (12:00)
[2017-04-18] MEDS ORDERED: VANCOMYCIN PER PHARMACY MC PRN (12:00)
[2017-04-18] MEDS ORDERED: PHARMACOKINETIC MONITORING MC PRN (12:00)
[2017-04-18] MEDS: HEPARIN 5,000 UNITS/ML, 1ML SQ SCH ×2 (12:00→20:30)
[2017-04-18 12:42] LABS: IS PT STATUS REG ER OR PRE ER? NO
[2017-04-18] MEDS ORDERED: VANCOMYCIN 2,200 MG in SODIUM CHLORIDE 0.9% 500 ML IV ONE (13:00)
[2017-04-18] MEDS: PIPERACILLIN/TAZO 2.25 GM in NS 50 ML IV SCH (13:20)
[2017-04-18] MEDS: ALBUTEROL SULFATE 2.5 MG/3 ML NPPB SCH ×2 (14:21→20:00)
[2017-04-18 15:15] VITALS: BP 125/50
[2017-04-18] MEDS: ALBUMIN HUMAN 25% 100 ML IV PRN (15:47)
[2017-04-18] MEDS: ALBUMIN HUMAN 25% 50 ML IV PRN (16:44)
[2017-04-18] MEDS: FERROUS SULFATE 325 MG TABLET PO SCH (17:50)
[2017-04-18] MEDS: DARBEPOETIN 100 MCG/ML SQ SCH (17:50)
[2017-04-18 19:38] VITALS: BP 113/65
[2017-04-18 20:06] LABS: IS PT STATUS REG ER OR PRE ER? NO
[2017-04-18] MEDS: ACETAMINOPHEN 325 MG TABLET PO PRN (20:29)
[2017-04-18] MEDS: ATENOLOL 25 MG TABLET PO SCH (20:29)
[2017-04-18] MEDS ORDERED: DEXTROSE 4 GM TAB.CHEW PO PRN (20:30)
[2017-04-18] MEDS ORDERED: DEXTROSE 50%, 50ML SYRINGE IVPush PRN (20:30)
[2017-04-18] MEDS ORDERED: GLUCAGON 1 MG IM PRN (20:30)
[2017-04-18] MEDS: SODIUM CHLORIDE FLUSH 10ML SYR IVF SCH (20:30)
[2017-04-18] MEDS: INSULIN ASPART 100 UNITS/ML, PEN SQ-INSULIN SCH (20:30)
[2017-04-18] MEDS ORDERED: DOCUSATE 100 MG CAPSULE PO PRN (21:00)
[2017-04-19] MEDS: PIPERACILLIN/TAZO 2.25 GM in NS 50 ML IV SCH ×2 (01:27→13:05)
[2017-04-19 02:47] VITALS: BP 119/67
[2017-04-19 05:19] LABS: HEMATOCRIT 28.6 % (34.6-47.8); HEMOGLOBIN 9.3 g/dL (11.7-16.4); WHITE BLOOD COUNT 12.3 x10^3/uL (3.4-10)
[2017-04-19] MEDS: ACETAMINOPHEN 325 MG TABLET PO PRN (05:37)
[2017-04-19] MEDS: LEVOTHYROXINE 100 MCG TABLET PO SCH (05:37)
[2017-04-19] MEDS: HEPARIN 5,000 UNITS/ML, 1ML SQ SCH ×3 (05:37→21:37)
[2017-04-19 05:38] LABS: BLOOD UREA NITROGEN 93 mg/dL (7-18)
[2017-04-19 05:50] LABS: FERRITIN 117.4 ng/mL (8-252); TOTAL IRON BINDING CAPACITY 217 mcg/dL (250-450)
[2017-04-19 06:14] LABS: IS PT STATUS REG ER OR PRE ER? NO
[2017-04-19] MEDS: ALBUTEROL SULFATE 2.5 MG/3 ML NPPB SCH ×4 (07:00→19:18)
[2017-04-19] MEDS: INSULIN ASPART 100 UNITS/ML, PEN SQ-INSULIN SCH ×4 (07:00→21:00)
[2017-04-19 07:15] VITALS: BP 107/66
[2017-04-19 07:30] VITALS: BP 100/63
[2017-04-19] MEDS: OMEPRAZOLE 20 MG CAPSULE.DR PO SCH (07:30)
[2017-04-19] MEDS ORDERED: IRON SUCROSE COMPLEX 100MG/5ML IV SCH (08:30)
[2017-04-19] MEDS: MINOXIDIL 2.5 MG TABLET PO SCH (09:00)
[2017-04-19] MEDS ORDERED: CINACALCET 30 MG TABLET PO SCH (09:00)
[2017-04-19] MEDS: MULTIVITAMINS/MINERALS TABLET PO SCH (09:00)
[2017-04-19] MEDS: LOVASTATIN 40 MG TABLET PO SCH ×2 (09:00→21:33)
[2017-04-19] MEDS: CINACALCET 30 MG TABLET PO SCH (09:00)
[2017-04-19] MEDS: ATENOLOL 25 MG TABLET PO SCH ×2 (09:00→21:00)
[2017-04-19] MEDS: FLUTICASONE NASAL SPRAY 16GM NAS SCH (09:00)
[2017-04-19] MEDS ORDERED: SENNA/DOCUSATE TABLET PO SCH (09:00)
[2017-04-19] MEDS: SODIUM CHLORIDE FLUSH 10ML SYR IVF SCH ×2 (09:00→21:00)
[2017-04-19] MEDS: ALBUMIN HUMAN 25% 100 ML IV PRN (09:31)
[2017-04-19] MEDS: ALBUMIN HUMAN 25% 50 ML IV PRN (09:45)
[2017-04-19] MEDS: SEVELAMER 800MG TABLET PO SCH ×2 (11:00→16:00)
[2017-04-19] MEDS: FERROUS SULFATE 325 MG TABLET PO SCH ×2 (11:16→17:11)
[2017-04-19] MEDS: CHOLECALCIFEROL 1,000 UNIT TABLET PO SCH (11:19)
[2017-04-19 12:39] LABS: IS PT STATUS REG ER OR PRE ER? NO
[2017-04-19] MEDS: HYDROcodone/APAP 5/325 TABLET PO PRN ×3 (13:05→23:25)
[2017-04-19 13:36] VITALS: BP 114/63
[2017-04-19 20:13] VITALS: BP 148/55
[2017-04-20] MEDS: PIPERACILLIN/TAZO 2.25 GM in NS 50 ML IV SCH ×3 (00:55→16:30)
[2017-04-20 02:24] VITALS: BP 129/80
[2017-04-20 05:52] LABS: HEMOGLOBIN 9.1 g/dL (11.7-16.4); WHITE BLOOD COUNT 10.2 x10^3/uL (3.4-10)
[2017-04-20 05:59] LABS: BLOOD UREA NITROGEN 79 mg/dL (7-18)
[2017-04-20] MEDS: HEPARIN 5,000 UNITS/ML, 1ML SQ SCH ×3 (06:00→22:00)
[2017-04-20 06:15] LABS: IS PT STATUS REG ER OR PRE ER? NO
[2017-04-20] MEDS: LEVOTHYROXINE 100 MCG TABLET PO SCH (06:31)
[2017-04-20] MEDS: HYDROcodone/APAP 5/325 TABLET PO PRN ×4 (06:31→22:27)
[2017-04-20] MEDS: ALBUTEROL SULFATE 2.5 MG/3 ML NPPB SCH ×4 (07:00→19:07)
[2017-04-20] MEDS: SEVELAMER 800MG TABLET PO SCH ×3 (07:00→16:00)
[2017-04-20] MEDS: INSULIN ASPART 100 UNITS/ML, PEN SQ-INSULIN SCH ×4 (07:00→21:00)
[2017-04-20 07:26] VITALS: BP 128/73
[2017-04-20] MEDS: OMEPRAZOLE 20 MG CAPSULE.DR PO SCH (07:30)
[2017-04-20] MEDS: PARICALCITOL 2 MCG/ML, 1ML IVPush SCH (07:57)
[2017-04-20] MEDS: FERROUS SULFATE 325 MG TABLET PO SCH ×2 (07:57→17:00)
[2017-04-20] MEDS: SODIUM CHLORIDE FLUSH 10ML SYR IVF SCH ×2 (07:58→22:26)
[2017-04-20] MEDS: ATENOLOL 25 MG TABLET PO SCH ×2 (09:00→22:26)
[2017-04-20] MEDS: CINACALCET 30 MG TABLET PO SCH (09:00)
[2017-04-20] MEDS: MINOXIDIL 2.5 MG TABLET PO SCH (09:00)
[2017-04-20] MEDS: FLUTICASONE NASAL SPRAY 16GM NAS SCH (09:00)
[2017-04-20] MEDS: MULTIVITAMINS/MINERALS TABLET PO SCH (09:38)
[2017-04-20] MEDS: CHOLECALCIFEROL 1,000 UNIT TABLET PO SCH (09:39)
[2017-04-20] MEDS: ALLOPURINOL 100 MG TABLET PO SCH (09:39)
[2017-04-20] MEDS: SENNA/DOCUSATE TABLET PO SCH (09:39)
[2017-04-20] MEDS: ALBUMIN HUMAN 25% 100 ML IV PRN (14:51)
[2017-04-20 19:44] VITALS: BP 111/44
[2017-04-20 22:25] VITALS: BP 150/85
[2017-04-20] MEDS: LOVASTATIN 40 MG TABLET PO SCH (22:27)
[2017-04-21 02:31] VITALS: BP 120/51
[2017-04-21] MEDS: HYDROcodone/APAP 5/325 TABLET PO PRN ×2 (02:58→08:38)
[2017-04-21 05:29] LABS: HEMATOCRIT 27.8 % (34.6-47.8); WHITE BLOOD COUNT 9.1 x10^3/uL (3.4-10)
[2017-04-21 05:45] LABS: BLOOD UREA NITROGEN 64 mg/dL (7-18)
[2017-04-21] MEDS: HEPARIN 5,000 UNITS/ML, 1ML SQ SCH ×4 (06:00→22:00)
[2017-04-21] MEDS: LEVOTHYROXINE 100 MCG TABLET PO SCH (06:04)
[2017-04-21] MEDS: SEVELAMER 800MG TABLET PO SCH ×3 (07:00→16:00)
[2017-04-21] MEDS: INSULIN ASPART 100 UNITS/ML, PEN SQ-INSULIN SCH ×4 (07:00→20:11)
[2017-04-21] MEDS: ALBUTEROL SULFATE 2.5 MG/3 ML NPPB SCH ×4 (07:28→19:46)
[2017-04-21] MEDS: OMEPRAZOLE 20 MG CAPSULE.DR PO SCH (07:30)
[2017-04-21 07:58] VITALS: BP 127/51
[2017-04-21] MEDS: FERROUS SULFATE 325 MG TABLET PO SCH ×2 (08:39→17:00)
[2017-04-21] MEDS: CHOLECALCIFEROL 1,000 UNIT TABLET PO SCH (08:39)
[2017-04-21] MEDS: ALLOPURINOL 100 MG TABLET PO SCH (08:39)
[2017-04-21] MEDS: MULTIVITAMINS/MINERALS TABLET PO SCH (08:39)
[2017-04-21] MEDS: SENNA/DOCUSATE TABLET PO SCH (08:40)
[2017-04-21] MEDS: CINACALCET 30 MG TABLET PO SCH (08:42)
[2017-04-21] MEDS: SODIUM CHLORIDE FLUSH 10ML SYR IVF SCH (08:42)
[2017-04-21] MEDS: MINOXIDIL 2.5 MG TABLET PO SCH (08:42)
[2017-04-21] MEDS: ATENOLOL 25 MG TABLET PO SCH ×2 (08:42→20:39)
[2017-04-21] MEDS: FLUTICASONE NASAL SPRAY 16GM NAS SCH (08:43)
[2017-04-21 08:52] LABS: HEP B SURF. AB < 3.1 mIU/mL (0.0-10.0)
[2017-04-21] MEDS: MORPHINE SULFATE 4 MG/ML, 1ML IVPush PRN ×2 (11:16→17:20)
[2017-04-21] MEDS: ALBUMIN HUMAN 25% 100 ML IV PRN (13:23)
[2017-04-21 14:00] VITALS: BP 91/52
[2017-04-21] MEDS: GUAIFENESIN/DM 200-20MG, 10ML UDC PO PRN (14:28)
[2017-04-21] MEDS: ALBUMIN HUMAN 25% 50 ML IV PRN (14:56)
[2017-04-21] MEDS: PIPERACILLIN/TAZO 2.25 GM in NS 50 ML IV SCH (17:20)
[2017-04-21 19:30] VITALS: BP 89/43
[2017-04-21] MEDS ORDERED: VANCOMYCIN PER PHARMACY MC PRN (22:00)
[2017-04-21] MEDS ORDERED: DEXTROSE 50%, 50ML SYRINGE IVPush PRN (22:00)
[2017-04-22 00:35] VITALS: BP 119/35
[2017-04-22] MEDS: LOVASTATIN 40 MG TABLET PO SCH ×2 (00:37→22:13)
[2017-04-22] MEDS: SODIUM CHLORIDE FLUSH 10ML SYR IVF SCH ×3 (00:37→21:00)
[2017-04-22] MEDS: MORPHINE SULFATE 4 MG/ML, 1ML IVPush PRN ×2 (00:37→17:20)
[2017-04-22] MEDS: PIPERACILLIN/TAZO 2.25 GM in NS 50 ML IV SCH ×2 (01:34→17:20)
[2017-04-22] MEDS: GUAIFENESIN/DM 200-20MG, 10ML UDC PO PRN ×2 (01:34→17:48)
[2017-04-22 05:36] LABS: BLOOD UREA NITROGEN 50 mg/dL (7-18)
[2017-04-22 06:00] LABS: HEMATOCRIT 28.6 % (34.6-47.8); HEMOGLOBIN 9.2 g/dL (11.7-16.4)
[2017-04-22] MEDS: HEPARIN 5,000 UNITS/ML, 1ML SQ SCH ×3 (06:00→22:00)
[2017-04-22] MEDS: LEVOTHYROXINE 100 MCG TABLET PO SCH (06:35)
[2017-04-22] MEDS: INSULIN ASPART 100 UNITS/ML, PEN SQ-INSULIN SCH ×4 (07:00→21:00)
[2017-04-22] MEDS: SEVELAMER 800MG TABLET PO SCH ×3 (07:00→16:00)
[2017-04-22] MEDS: OMEPRAZOLE 20 MG CAPSULE.DR PO SCH (07:30)
[2017-04-22] MEDS: ALBUTEROL SULFATE 2.5 MG/3 ML NPPB SCH ×4 (08:15→19:52)
[2017-04-22 09:00] VITALS: BP 105/59
[2017-04-22] MEDS: CINACALCET 30 MG TABLET PO SCH (09:00)
[2017-04-22] MEDS: ATENOLOL 25 MG TABLET PO SCH ×2 (09:00→21:00)
[2017-04-22] MEDS: MINOXIDIL 2.5 MG TABLET PO SCH (09:00)
[2017-04-22] MEDS: FLUTICASONE NASAL SPRAY 16GM NAS SCH (09:00)
[2017-04-22] MEDS: SENNA/DOCUSATE TABLET PO SCH (09:47)
[2017-04-22] MEDS: MULTIVITAMINS/MINERALS TABLET PO SCH (09:48)
[2017-04-22] MEDS: CHOLECALCIFEROL 1,000 UNIT TABLET PO SCH (09:48)
[2017-04-22] MEDS: FERROUS SULFATE 325 MG TABLET PO SCH ×2 (09:48→17:48)
[2017-04-22] MEDS: ALLOPURINOL 100 MG TABLET PO SCH (09:48)
[2017-04-22] MEDS ORDERED: VANCOMYCIN 2,200 MG in SODIUM CHLORIDE 0.9% 500 ML IV ONE (12:00)
[2017-04-22 13:50] VITALS: BP 139/47
[2017-04-22 22:06] VITALS: BP 118/51
[2017-04-22] MEDS: HYDROcodone/APAP 5/325 TABLET PO PRN (22:13)
[2017-04-23 00:30] VITALS: BP 138/54
[2017-04-23] MEDS: PIPERACILLIN/TAZO 2.25 GM in NS 50 ML IV SCH ×2 (01:34→12:35)
[2017-04-23] MEDS: GUAIFENESIN/DM 200-20MG, 10ML UDC PO PRN ×2 (03:05→23:00)
[2017-04-23 04:56] LABS: ASPARTATE AMINO TRANSFERASE 23 U/L (15-37); BLOOD UREA NITROGEN 62 mg/dL (7-18)
[2017-04-23 04:58] LABS: HEMATOCRIT 27.8 % (34.6-47.8); HEMOGLOBIN 9.1 g/dL (11.7-16.4); WHITE BLOOD COUNT 8.4 x10^3/uL (3.4-10)
[2017-04-23] MEDS: HEPARIN 5,000 UNITS/ML, 1ML SQ SCH ×3 (06:00→22:00)
[2017-04-23] MEDS: HYDROcodone/APAP 5/325 TABLET PO PRN (06:36)
[2017-04-23] MEDS: LEVOTHYROXINE 100 MCG TABLET PO SCH (06:36)
[2017-04-23] MEDS: SEVELAMER 800MG TABLET PO SCH ×3 (07:00→16:00)
[2017-04-23] MEDS: ALBUTEROL SULFATE 2.5 MG/3 ML NPPB SCH ×4 (07:00→20:01)
[2017-04-23] MEDS: INSULIN ASPART 100 UNITS/ML, PEN SQ-INSULIN SCH ×4 (07:00→21:00)
[2017-04-23] MEDS: OMEPRAZOLE 20 MG CAPSULE.DR PO SCH (07:30)
[2017-04-23 07:44] VITALS: BP 130/69
[2017-04-23] MEDS: MULTIVITAMINS/MINERALS TABLET PO SCH ×2 (09:00→09:21)
[2017-04-23] MEDS: MINOXIDIL 2.5 MG TABLET PO SCH (09:00)
[2017-04-23] MEDS: ATENOLOL 25 MG TABLET PO SCH ×2 (09:00→21:00)
[2017-04-23] MEDS: FLUTICASONE NASAL SPRAY 16GM NAS SCH (09:00)
[2017-04-23] MEDS: SENNA/DOCUSATE TABLET PO SCH (09:00)
[2017-04-23] MEDS: FERROUS SULFATE 325 MG TABLET PO SCH ×2 (09:20→17:00)
[2017-04-23] MEDS: PARICALCITOL 2 MCG/ML, 1ML IVPush SCH (09:21)
[2017-04-23] MEDS: SODIUM CHLORIDE FLUSH 10ML SYR IVF SCH ×2 (09:21→21:17)
[2017-04-23] MEDS: CINACALCET 30 MG TABLET PO SCH (09:22)
[2017-04-23] MEDS: CHOLECALCIFEROL 1,000 UNIT TABLET PO SCH (09:22)
[2017-04-23] MEDS: ALLOPURINOL 100 MG TABLET PO SCH (09:26)
[2017-04-23] MEDS: CEFTRIAXONE PMX 2GM/50ML 50 ML IV SCH (13:22)
[2017-04-23 14:07] VITALS: BP 127/65
[2017-04-23] MEDS: ALBUMIN HUMAN 25% 50 ML IV PRN (14:38)
[2017-04-23] MEDS: LOVASTATIN 40 MG TABLET PO SCH (21:17)
[2017-04-23 21:34] VITALS: BP 93/47
[2017-04-23] MEDS: MORPHINE SULFATE 4 MG/ML, 1ML IVPush PRN (23:00)
[2017-04-24 02:00] VITALS: BP 139/61
[2017-04-24 05:26] LABS: BLOOD UREA NITROGEN 44 mg/dL (7-18)
[2017-04-24] MEDS: HEPARIN 5,000 UNITS/ML, 1ML SQ SCH ×3 (06:00→22:00)
[2017-04-24] MEDS: LEVOTHYROXINE 100 MCG TABLET PO SCH (06:01)
[2017-04-24] MEDS: ALBUTEROL SULFATE 2.5 MG/3 ML NPPB SCH ×4 (06:20→20:00)
[2017-04-24] MEDS: HYDROcodone/APAP 5/325 TABLET PO PRN ×2 (06:42→17:44)
[2017-04-24] MEDS: INSULIN ASPART 100 UNITS/ML, PEN SQ-INSULIN SCH ×4 (07:00→20:13)
[2017-04-24] MEDS: SEVELAMER 800MG TABLET PO SCH ×3 (07:00→16:00)
[2017-04-24 07:05] VITALS: BP 118/55
[2017-04-24] MEDS: OMEPRAZOLE 20 MG CAPSULE.DR PO SCH (07:30)
[2017-04-24] MEDS: MINOXIDIL 2.5 MG TABLET PO SCH (08:26)
[2017-04-24] MEDS: CHOLECALCIFEROL 1,000 UNIT TABLET PO SCH (08:27)
[2017-04-24] MEDS: ATENOLOL 25 MG TABLET PO SCH ×2 (08:27→20:10)
[2017-04-24] MEDS: FERROUS SULFATE 325 MG TABLET PO SCH ×2 (08:27→16:41)
[2017-04-24] MEDS: ALLOPURINOL 100 MG TABLET PO SCH (08:27)
[2017-04-24] MEDS: SODIUM CHLORIDE FLUSH 10ML SYR IVF SCH ×2 (08:28→20:10)
[2017-04-24] MEDS: FLUTICASONE NASAL SPRAY 16GM NAS SCH (08:28)
[2017-04-24] MEDS: CINACALCET 30 MG TABLET PO SCH (08:29)
[2017-04-24] MEDS: MULTIVITAMINS/MINERALS TABLET PO SCH (08:29)
[2017-04-24] MEDS: SENNA/DOCUSATE TABLET PO SCH (08:29)
[2017-04-24] MEDS: CEFTRIAXONE PMX 2GM/50ML 50 ML IV SCH (13:00)
[2017-04-24 14:51] VITALS: BP 118/48
[2017-04-24 19:59] VITALS: BP 140/73
[2017-04-24] MEDS: GUAIFENESIN/DM 200-20MG, 10ML UDC PO PRN (20:10)
[2017-04-24] MEDS: LOVASTATIN 40 MG TABLET PO SCH (20:10)
[2017-04-25 01:38] VITALS: BP 168/77
[2017-04-25] MEDS: LEVOTHYROXINE 100 MCG TABLET PO SCH (05:33)
[2017-04-25] MEDS: HEPARIN 5,000 UNITS/ML, 1ML SQ SCH ×3 (05:33→22:00)
[2017-04-25] MEDS: ALBUTEROL SULFATE 2.5 MG/3 ML NPPB SCH ×4 (06:31→21:10)
[2017-04-25 06:54] LABS: WHITE BLOOD COUNT 9.4 x10^3/uL (3.4-10)
[2017-04-25] MEDS: SEVELAMER 800MG TABLET PO SCH ×3 (07:00→16:00)
[2017-04-25] MEDS: INSULIN ASPART 100 UNITS/ML, PEN SQ-INSULIN SCH ×4 (07:00→22:40)
[2017-04-25 07:06] LABS: BLOOD UREA NITROGEN 61 mg/dL (7-18)
[2017-04-25] MEDS: OMEPRAZOLE 20 MG CAPSULE.DR PO SCH (07:14)
[2017-04-25 07:33] VITALS: BP 171/78
[2017-04-25] MEDS: PARICALCITOL 2 MCG/ML, 1ML IVPush SCH (08:30)
[2017-04-25] MEDS: ALLOPURINOL 100 MG TABLET PO SCH (08:48)
[2017-04-25] MEDS: MINOXIDIL 2.5 MG TABLET PO SCH (08:48)
[2017-04-25] MEDS: FERROUS SULFATE 325 MG TABLET PO SCH ×2 (08:48→16:28)
[2017-04-25] MEDS: CHOLECALCIFEROL 1,000 UNIT TABLET PO SCH (08:48)
[2017-04-25] MEDS: MULTIVITAMINS/MINERALS TABLET PO SCH (08:49)
[2017-04-25] MEDS: CINACALCET 30 MG TABLET PO SCH (08:49)
[2017-04-25] MEDS: FLUTICASONE NASAL SPRAY 16GM NAS SCH (08:49)
[2017-04-25] MEDS: SENNA/DOCUSATE TABLET PO SCH (08:49)
[2017-04-25] MEDS: ATENOLOL 25 MG TABLET PO SCH ×2 (08:49→22:40)
[2017-04-25] MEDS: SODIUM CHLORIDE FLUSH 10ML SYR IVF SCH ×2 (08:49→22:42)
[2017-04-25] MEDS: HYDROcodone/APAP 5/325 TABLET PO PRN ×2 (09:30→17:17)
[2017-04-25] MEDS: DARBEPOETIN 100 MCG/ML SQ SCH (12:48)
[2017-04-25 14:19] VITALS: BP 117/56
[2017-04-25] MEDS: GUAIFENESIN/DM 200-20MG, 10ML UDC PO PRN (14:33)
[2017-04-25] MEDS: ALBUMIN HUMAN 25% 100 ML IV PRN (18:12)
[2017-04-25 19:56] VITALS: BP 148/66
[2017-04-25] MEDS: MORPHINE SULFATE 4 MG/ML, 1ML IVPush PRN (22:41)
[2017-04-25] MEDS: LOVASTATIN 40 MG TABLET PO SCH (22:42)
[2017-04-25] MEDS: CEFTRIAXONE PMX 2GM/50ML 50 ML IV SCH (22:42)
[2017-04-26] MEDS: HYDROcodone/APAP 5/325 TABLET PO PRN ×3 (01:39→22:30)
[2017-04-26 03:05] VITALS: BP 149/68
[2017-04-26] MEDS: HEPARIN 5,000 UNITS/ML, 1ML SQ SCH ×3 (06:00→22:00)
[2017-04-26] MEDS: LEVOTHYROXINE 100 MCG TABLET PO SCH (06:31)
[2017-04-26] MEDS: ALBUTEROL SULFATE 2.5 MG/3 ML NPPB SCH ×4 (07:00→20:35)
[2017-04-26] MEDS: INSULIN ASPART 100 UNITS/ML, PEN SQ-INSULIN SCH ×4 (07:00→21:00)
[2017-04-26] MEDS: SEVELAMER 800MG TABLET PO SCH ×3 (07:00→16:00)
[2017-04-26] MEDS: OMEPRAZOLE 20 MG CAPSULE.DR PO SCH (07:30)
[2017-04-26 07:41] VITALS: BP 157/75
[2017-04-26] MEDS: SENNA/DOCUSATE TABLET PO SCH (09:00)
[2017-04-26] MEDS: MULTIVITAMINS/MINERALS TABLET PO SCH (09:00)
[2017-04-26] MEDS: CINACALCET 30 MG TABLET PO SCH (09:00)
[2017-04-26] MEDS: FLUTICASONE NASAL SPRAY 16GM NAS SCH (09:00)
[2017-04-26] MEDS: ALLOPURINOL 100 MG TABLET PO SCH (09:01)
[2017-04-26] MEDS: CHOLECALCIFEROL 1,000 UNIT TABLET PO SCH (09:02)
[2017-04-26] MEDS: FERROUS SULFATE 325 MG TABLET PO SCH (09:02)
[2017-04-26] MEDS: SODIUM CHLORIDE FLUSH 10ML SYR IVF SCH ×2 (09:02→22:29)
[2017-04-26] MEDS: ATENOLOL 25 MG TABLET PO SCH ×2 (09:02→22:34)
[2017-04-26] MEDS: MINOXIDIL 2.5 MG TABLET PO SCH (09:03)
[2017-04-26] MEDS: GUAIFENESIN/DM 200-20MG, 10ML UDC PO PRN ×2 (09:20→20:00)
[2017-04-26 13:11] VITALS: BP 148/77
[2017-04-26 19:06] VITALS: BP 139/70
[2017-04-26] MEDS: LOVASTATIN 40 MG TABLET PO SCH (22:29)
[2017-04-26] MEDS: CEFTRIAXONE PMX 2GM/50ML 50 ML IV SCH (22:29)
[2017-04-27 00:59] VITALS: BP 147/69
[2017-04-27] MEDS: HYDROcodone/APAP 5/325 TABLET PO PRN ×2 (05:45→13:13)
[2017-04-27] MEDS: GUAIFENESIN/DM 200-20MG, 10ML UDC PO PRN ×2 (05:45→13:13)
[2017-04-27] MEDS: LEVOTHYROXINE 100 MCG TABLET PO SCH (05:45)
[2017-04-27] MEDS: HEPARIN 5,000 UNITS/ML, 1ML SQ SCH ×3 (05:46→20:42)
[2017-04-27] MEDS: ALBUTEROL SULFATE 2.5 MG/3 ML NPPB SCH ×2 (07:00→20:23)
[2017-04-27] MEDS ORDERED: ALBUTEROL SULFATE 2.5 MG/3 ML NPPB PRN (07:30)
[2017-04-27 07:34] VITALS: BP 143/71
[2017-04-27] MEDS: SEVELAMER 800MG TABLET PO SCH ×3 (08:16→16:46)
[2017-04-27] MEDS: INSULIN ASPART 100 UNITS/ML, PEN SQ-INSULIN SCH ×4 (08:16→20:41)
[2017-04-27] MEDS: OMEPRAZOLE 20 MG CAPSULE.DR PO SCH (08:17)
[2017-04-27] MEDS: FLUTICASONE NASAL SPRAY 16GM NAS SCH (08:17)
[2017-04-27] MEDS: MINOXIDIL 2.5 MG TABLET PO SCH (08:18)
[2017-04-27] MEDS: ATENOLOL 25 MG TABLET PO SCH ×3 (08:18→20:44)
[2017-04-27] MEDS: CINACALCET 30 MG TABLET PO SCH (08:18)
[2017-04-27] MEDS: SENNA/DOCUSATE TABLET PO SCH (08:18)
[2017-04-27] MEDS: CHOLECALCIFEROL 1,000 UNIT TABLET PO SCH (08:19)
[2017-04-27] MEDS: MULTIVITAMINS/MINERALS TABLET PO SCH (08:19)
[2017-04-27] MEDS: ALLOPURINOL 100 MG TABLET PO SCH (08:19)
[2017-04-27 09:03] LABS: HEMATOCRIT 28.1 % (34.6-47.8); HEMOGLOBIN 9.4 g/dL (11.7-16.4); WHITE BLOOD COUNT 9.2 x10^3/uL (3.4-10)
[2017-04-27 09:14] LABS: BLOOD UREA NITROGEN 60 mg/dL (7-18)
[2017-04-27] MEDS: SODIUM CHLORIDE FLUSH 10ML SYR IVF SCH ×2 (10:10→20:41)
[2017-04-27 11:45] LABS: OCCBLD OBC PASS
[2017-04-27 13:43] VITALS: BP 159/74
[2017-04-27] MEDS: ALBUMIN HUMAN 25% 100 ML IV PRN (15:13)
[2017-04-27] MEDS: PARICALCITOL 2 MCG/ML, 1ML IVPush SCH (15:15)
[2017-04-27 20:25] VITALS: BP 130/65
[2017-04-27] MEDS: CEFTRIAXONE PMX 2GM/50ML 50 ML IV SCH (20:41)
[2017-04-27] MEDS: LOVASTATIN 40 MG TABLET PO SCH (20:41)
[2017-04-27] MEDS: MORPHINE SULFATE 4 MG/ML, 1ML IVPush PRN (22:59)
[2017-04-28 02:27] VITALS: BP 107/63
[2017-04-28] MEDS: HEPARIN 5,000 UNITS/ML, 1ML SQ SCH ×3 (06:00→21:41)
[2017-04-28] MEDS: HYDROcodone/APAP 5/325 TABLET PO PRN ×2 (06:18→11:59)
[2017-04-28] MEDS: LEVOTHYROXINE 100 MCG TABLET PO SCH (06:18)
[2017-04-28] MEDS: INSULIN ASPART 100 UNITS/ML, PEN SQ-INSULIN SCH ×4 (07:37→20:14)
[2017-04-28 08:17] VITALS: BP 145/77
[2017-04-28] MEDS: ATENOLOL 25 MG TABLET PO SCH ×2 (08:51→20:13)
[2017-04-28] MEDS: FLUTICASONE NASAL SPRAY 16GM NAS SCH (08:51)
[2017-04-28] MEDS: OMEPRAZOLE 20 MG CAPSULE.DR PO SCH (08:51)
[2017-04-28] MEDS: SEVELAMER 800MG TABLET PO SCH ×3 (08:51→17:03)
[2017-04-28] MEDS: MULTIVITAMINS/MINERALS TABLET PO SCH (08:52)
[2017-04-28] MEDS: MINOXIDIL 2.5 MG TABLET PO SCH (08:52)
[2017-04-28] MEDS: SENNA/DOCUSATE TABLET PO SCH (08:53)
[2017-04-28] MEDS: CINACALCET 30 MG TABLET PO SCH (08:53)
[2017-04-28] MEDS: CHOLECALCIFEROL 1,000 UNIT TABLET PO SCH (08:54)
[2017-04-28] MEDS: ALLOPURINOL 100 MG TABLET PO SCH (08:56)
[2017-04-28] MEDS: SODIUM CHLORIDE FLUSH 10ML SYR IVF SCH ×2 (08:59→20:22)
[2017-04-28] MEDS: GUAIFENESIN/DM 200-20MG, 10ML UDC PO PRN (09:10)
[2017-04-28] MEDS: ALBUTEROL SULFATE 2.5 MG/3 ML NPPB SCH ×2 (09:37→21:35)
[2017-04-28 13:08] VITALS: BP 142/56
[2017-04-28] MEDS: LOVASTATIN 40 MG TABLET PO SCH (20:13)
[2017-04-28 20:20] VITALS: BP 118/65
[2017-04-28] MEDS: CEFTRIAXONE PMX 2GM/50ML 50 ML IV SCH (20:21)
[2017-04-29] MEDS ORDERED: DEXTROSE 50%, 50ML SYRINGE IVPush PRN (00:30)
[2017-04-29] MEDS ORDERED: DEXTROSE 4 GM TAB.CHEW PO PRN (00:30)
[2017-04-29] MEDS ORDERED: GLUCAGON 1 MG IM PRN (00:30)
[2017-04-29] MEDS ORDERED: DOCUSATE 100 MG CAPSULE PO PRN (00:30)
[2017-04-29 02:06] VITALS: BP 146/66
[2017-04-29] MEDS: HEPARIN 5,000 UNITS/ML, 1ML SQ SCH ×3 (04:56→21:20)
[2017-04-29] MEDS: LEVOTHYROXINE 100 MCG TABLET PO SCH (04:56)
[2017-04-29] MEDS: INSULIN ASPART 100 UNITS/ML, PEN SQ-INSULIN SCH ×4 (07:00→21:00)
[2017-04-29 07:47] VITALS: BP 131/66
[2017-04-29] MEDS: ALLOPURINOL 100 MG TABLET PO SCH (08:33)
[2017-04-29] MEDS: CHOLECALCIFEROL 1,000 UNIT TABLET PO SCH (08:34)
[2017-04-29] MEDS: ATENOLOL 25 MG TABLET PO SCH ×2 (08:34→21:10)
[2017-04-29] MEDS: MINOXIDIL 2.5 MG TABLET PO SCH (08:35)
[2017-04-29] MEDS: SENNA/DOCUSATE TABLET PO SCH (08:36)
[2017-04-29] MEDS: SEVELAMER 800MG TABLET PO SCH ×3 (08:37→16:00)
[2017-04-29] MEDS: CINACALCET 30 MG TABLET PO SCH (08:37)
[2017-04-29] MEDS: SODIUM CHLORIDE FLUSH 10ML SYR IVF SCH ×2 (08:37→21:10)
[2017-04-29] MEDS: OMEPRAZOLE 20 MG CAPSULE.DR PO SCH (08:38)
[2017-04-29] MEDS: ALBUTEROL SULFATE 2.5 MG/3 ML NPPB SCH ×2 (08:38→20:18)
[2017-04-29] MEDS: FLUTICASONE NASAL SPRAY 16GM NAS SCH (08:39)
[2017-04-29] MEDS: MULTIVITAMINS/MINERALS TABLET PO SCH (08:41)
[2017-04-29] MEDS: HYDROcodone/APAP 5/325 TABLET PO PRN (13:14)
[2017-04-29 13:38] VITALS: BP 119/51
[2017-04-29] MEDS: GUAIFENESIN/DM 200-20MG, 10ML UDC PO PRN (17:26)
[2017-04-29 19:44] VITALS: BP 136/87
[2017-04-29] MEDS: LOVASTATIN 40 MG TABLET PO SCH (21:09)
[2017-04-29] MEDS: CEFTRIAXONE PMX 2GM/50ML 50 ML IV SCH (21:20)
[2017-04-30] MEDS: MORPHINE SULFATE 4 MG/ML, 1ML IVPush PRN (01:01)
[2017-04-30 02:00] VITALS: BP 138/70
[2017-04-30 05:08] LABS: HEMOGLOBIN 8.7 g/dL (11.7-16.4); WHITE BLOOD COUNT 8.9 x10^3/uL (3.4-10)
[2017-04-30 05:13] LABS: BLOOD UREA NITROGEN 75 mg/dL (7-18)
[2017-04-30] MEDS: LEVOTHYROXINE 100 MCG TABLET PO SCH (05:56)
[2017-04-30] MEDS: HEPARIN 5,000 UNITS/ML, 1ML SQ SCH ×3 (05:56→21:33)
[2017-04-30] MEDS: INSULIN ASPART 100 UNITS/ML, PEN SQ-INSULIN SCH ×4 (07:00→21:32)
[2017-04-30] MEDS: SEVELAMER 800MG TABLET PO SCH ×3 (07:00→16:00)
[2017-04-30 07:16] VITALS: BP 167/85
[2017-04-30 07:20] VITALS: BP 153/80
[2017-04-30] MEDS: OMEPRAZOLE 20 MG CAPSULE.DR PO SCH (07:30)
[2017-04-30] MEDS: PARICALCITOL 2 MCG/ML, 1ML IVPush SCH (08:30)
[2017-04-30] MEDS: GUAIFENESIN/DM 200-20MG, 10ML UDC PO PRN (08:56)
[2017-04-30] MEDS: MULTIVITAMINS/MINERALS TABLET PO SCH (09:00)
[2017-04-30] MEDS: CINACALCET 30 MG TABLET PO SCH (09:00)
[2017-04-30] MEDS: FLUTICASONE NASAL SPRAY 16GM NAS SCH (09:00)
[2017-04-30] MEDS: SODIUM CHLORIDE FLUSH 10ML SYR IVF SCH ×2 (09:00→21:32)
[2017-04-30] MEDS: SENNA/DOCUSATE TABLET PO SCH (09:00)
[2017-04-30] MEDS: ALBUMIN HUMAN 25% 50 ML IV PRN (10:30)
[2017-04-30] MEDS: ALBUTEROL SULFATE 2.5 MG/3 ML NPPB SCH ×2 (11:16→19:45)
[2017-04-30 13:11] VITALS: BP 126/63
[2017-04-30] MEDS: MINOXIDIL 2.5 MG TABLET PO SCH (13:24)
[2017-04-30] MEDS: CHOLECALCIFEROL 1,000 UNIT TABLET PO SCH (13:24)
[2017-04-30] MEDS: ATENOLOL 25 MG TABLET PO SCH ×2 (13:25→21:33)
[2017-04-30] MEDS: ALLOPURINOL 100 MG TABLET PO SCH (13:25)
[2017-04-30] MEDS: OXYcodone 5 MG/5 ML ORAL.SOL UDC PO PRN (16:37)
[2017-04-30 20:00] VITALS: BP 118/68
[2017-04-30] MEDS: CEFTRIAXONE PMX 2GM/50ML 50 ML IV SCH (21:32)
[2017-04-30] MEDS: LOVASTATIN 40 MG TABLET PO SCH (21:33)
[2017-05-01 01:44] VITALS: BP 137/68
[2017-05-01] MEDS: GUAIFENESIN/DM 200-20MG, 10ML UDC PO PRN ×2 (03:04→21:23)
[2017-05-01] MEDS: OXYcodone 5 MG/5 ML ORAL.SOL UDC PO PRN ×4 (03:04→21:23)
[2017-05-01] MEDS: HEPARIN 5,000 UNITS/ML, 1ML SQ SCH ×3 (06:00→22:00)
[2017-05-01] MEDS: LEVOTHYROXINE 100 MCG TABLET PO SCH (06:20)
[2017-05-01] MEDS: SEVELAMER 800MG TABLET PO SCH ×3 (07:00→16:00)
[2017-05-01] MEDS: INSULIN ASPART 100 UNITS/ML, PEN SQ-INSULIN SCH ×4 (07:19→21:50)
[2017-05-01 07:29] VITALS: BP 128/67
[2017-05-01] MEDS: OMEPRAZOLE 20 MG CAPSULE.DR PO SCH (07:30)
[2017-05-01] MEDS: ATENOLOL 25 MG TABLET PO SCH ×2 (08:18→21:00)
[2017-05-01] MEDS: MINOXIDIL 2.5 MG TABLET PO SCH (08:18)
[2017-05-01] MEDS: ALLOPURINOL 100 MG TABLET PO SCH (08:19)
[2017-05-01] MEDS: CHOLECALCIFEROL 1,000 UNIT TABLET PO SCH (08:19)
[2017-05-01] MEDS: ALBUTEROL SULFATE 2.5 MG/3 ML NPPB SCH ×2 (08:56→19:22)
[2017-05-01] MEDS: CINACALCET 30 MG TABLET PO SCH (09:00)
[2017-05-01] MEDS: FLUTICASONE NASAL SPRAY 16GM NAS SCH (09:00)
[2017-05-01] MEDS: SENNA/DOCUSATE TABLET PO SCH (09:00)
[2017-05-01] MEDS: MULTIVITAMINS/MINERALS TABLET PO SCH (09:00)
[2017-05-01] MEDS: SODIUM CHLORIDE FLUSH 10ML SYR IVF SCH ×2 (09:33→21:23)
[2017-05-01 14:45] VITALS: BP 145/52
[2017-05-01 20:00] VITALS: BP 115/60
[2017-05-01] MEDS: LOVASTATIN 40 MG TABLET PO SCH (21:22)
[2017-05-01] MEDS: CEFTRIAXONE PMX 2GM/50ML 50 ML IV SCH (21:23)
[2017-05-02 02:00] VITALS: BP 140/63
[2017-05-02] MEDS: HEPARIN 5,000 UNITS/ML, 1ML SQ SCH ×4 (05:35→21:33)
[2017-05-02] MEDS: INSULIN ASPART 100 UNITS/ML, PEN SQ-INSULIN SCH ×4 (07:00→21:00)
[2017-05-02] MEDS: SEVELAMER 800MG TABLET PO SCH ×3 (07:00→16:00)
[2017-05-02] MEDS: OMEPRAZOLE 20 MG CAPSULE.DR PO SCH (07:30)
[2017-05-02 07:50] VITALS: BP 115/52
[2017-05-02] MEDS: ATENOLOL 25 MG TABLET PO SCH ×2 (09:00→21:00)
[2017-05-02] MEDS: MINOXIDIL 2.5 MG TABLET PO SCH (09:00)
[2017-05-02] MEDS: ALBUTEROL SULFATE 2.5 MG/3 ML NPPB SCH ×2 (09:00→18:50)
[2017-05-02] MEDS: FLUTICASONE NASAL SPRAY 16GM NAS SCH (09:00)
[2017-05-02] MEDS: SENNA/DOCUSATE TABLET PO SCH (09:00)
[2017-05-02] MEDS: MULTIVITAMINS/MINERALS TABLET PO SCH (09:00)
[2017-05-02] MEDS: CINACALCET 30 MG TABLET PO SCH (09:00)
[2017-05-02] MEDS: CHOLECALCIFEROL 1,000 UNIT TABLET PO SCH (11:25)
[2017-05-02] MEDS: ALLOPURINOL 100 MG TABLET PO SCH (11:25)
[2017-05-02] MEDS: LEVOTHYROXINE 100 MCG TABLET PO SCH (11:25)
[2017-05-02] MEDS: SODIUM CHLORIDE FLUSH 10ML SYR IVF SCH ×2 (11:27→21:00)
[2017-05-02] MEDS: PARICALCITOL 2 MCG/ML, 1ML IVPush SCH (11:27)
[2017-05-02] MEDS: GUAIFENESIN/DM 200-20MG, 10ML UDC PO PRN (12:47)
[2017-05-02] MEDS: DARBEPOETIN 100 MCG/ML SQ SCH (12:47)
[2017-05-02] MEDS: OXYcodone 5 MG/5 ML ORAL.SOL UDC PO PRN ×2 (14:47→21:31)
[2017-05-02 15:00] VITALS: BP 106/54
[2017-05-02] MEDS: ALBUMIN HUMAN 25% 50 ML IV PRN ×2 (15:21→15:23)
[2017-05-02 20:00] VITALS: BP 127/64
[2017-05-02] MEDS ORDERED: LIDOCAINE 1%, 2ML INFIL ONE (21:30)
[2017-05-02] MEDS ORDERED: CEFTRIAXONE 1,000 MG IM ONE (21:30)
[2017-05-02] MEDS: LOVASTATIN 40 MG TABLET PO SCH (21:30)
[2017-05-02] MEDS: CEFTRIAXONE PMX 2GM/50ML 50 ML IV SCH (22:58)
[2017-05-03] VITALS (11 sets, daily range): BP systolic 87–121; BP diastolic 34–84
[2017-05-03] MEDS: LEVOTHYROXINE 100 MCG TABLET PO SCH (04:43)
[2017-05-03] MEDS: OXYcodone 5 MG/5 ML ORAL.SOL UDC PO PRN (04:50)
[2017-05-03] MEDS: GUAIFENESIN/DM 200-20MG, 10ML UDC PO PRN (04:50)
[2017-05-03] MEDS: SEVELAMER 800MG TABLET PO SCH ×3 (07:00→16:00)
[2017-05-03] MEDS: INSULIN ASPART 100 UNITS/ML, PEN SQ-INSULIN SCH ×4 (07:00→22:38)
[2017-05-03] MEDS: OMEPRAZOLE 20 MG CAPSULE.DR PO SCH (07:30)
[2017-05-03] MEDS: MULTIVITAMINS/MINERALS TABLET PO SCH (09:00)
[2017-05-03] MEDS: SODIUM CHLORIDE FLUSH 10ML SYR IVF SCH ×2 (09:00→22:47)
[2017-05-03] MEDS: SENNA/DOCUSATE TABLET PO SCH (09:00)
[2017-05-03] MEDS: CINACALCET 30 MG TABLET PO SCH (09:00)
[2017-05-03] MEDS: FLUTICASONE NASAL SPRAY 16GM NAS SCH (09:00)
[2017-05-03] MEDS: CHOLECALCIFEROL 1,000 UNIT TABLET PO SCH (09:08)
[2017-05-03] MEDS: MINOXIDIL 2.5 MG TABLET PO SCH (09:09)
[2017-05-03] MEDS: ALLOPURINOL 100 MG TABLET PO SCH (09:09)
[2017-05-03] MEDS: ATENOLOL 25 MG TABLET PO SCH ×2 (09:09→22:02)
[2017-05-03] MEDS: ALBUTEROL SULFATE 2.5 MG/3 ML NPPB SCH ×2 (10:37→21:35)
[2017-05-03] MEDS ORDERED: FENTANYL PF 100 MCG/2ML ONE ×3 (10:55→17:52)
[2017-05-03] MEDS ORDERED: MIDAZOLAM 1 MG/ML, 2ML ONE (10:56)
[2017-05-03] MEDS ORDERED: HYDROmorphone 1 MG/ML, 1ML ONE ×3 (10:56→18:10)
[2017-05-03] MEDS ORDERED: BUPIVACAINE/PF 0.5% ONE (11:33)
[2017-05-03] MEDS ORDERED: PROTAMINE SULFATE 10 MG/ML, 5ML ONE (11:33)
[2017-05-03] MEDS ORDERED: THROMBIN 5,000 UNIT VIAL TP ONE (11:34)
[2017-05-03] MEDS ORDERED: HEPARIN 1,000 UNITS/ML, 10ML ONE (11:34)
[2017-05-03] MEDS ORDERED: SUGAMMADEX 200 MG/2 ML IVPush ONE (12:26)
[2017-05-03] MEDS ORDERED: KETAMINE 10 MG/ML, 20ML ONE (12:30)
[2017-05-03] MEDS ORDERED: VISIPAQUE 270 MG/ML, 50ML BOTTLE IV ONE (12:40)
[2017-05-03] MEDS ORDERED: ROCURONIUM 10 MG/ML ONE (12:44)
[2017-05-03] MEDS ORDERED: PROPOFOL 10 MG/ML, 20ML ONE (12:44)
[2017-05-03] MEDS: HEPARIN 5,000 UNITS/ML, 1ML SQ SCH ×2 (14:00→22:28)
[2017-05-03] MEDS ORDERED: EPHEDRINE 50 MG/ML, 1ML ONE (16:25)
[2017-05-03] MEDS ORDERED: HYDROcodone/APAP 7.5-325MG/15ML UDC PO PRN (16:30)
[2017-05-03] MEDS: HYDROmorphone 1 MG/ML, 1ML IV PRN ×4 (16:30→18:38)
[2017-05-03] MEDS ORDERED: ONDANSETRON 2MG/ML, 2ML IVPush PRN (16:30)
[2017-05-03] MEDS ORDERED: EPHEDRINE 50 MG/ML, 1ML IM ONE (16:30)
[2017-05-03] MEDS ORDERED: LABETALOL 5MG/ML, 20ML IV PRN (16:30)
[2017-05-03] MEDS ORDERED: EPHEDRINE 50 MG/ML, 1ML IVPush PRN (16:30)
[2017-05-03] MEDS ORDERED: MIDAZOLAM 1 MG/ML, 2ML IV PRN (16:30)
[2017-05-03] MEDS ORDERED: OXYcodone 5 MG/5 ML ORAL.SOL UDC PO PRN (16:30)
[2017-05-03 16:56] LABS: BLOOD UREA NITROGEN 66 mg/dL (7-18)
[2017-05-03 17:16] LABS: HEMOGLOBIN 7.1 g/dL (11.7-16.4); WHITE BLOOD COUNT 11.5 x10^3/uL (3.4-10)
[2017-05-03 17:17] LABS: HEMATOCRIT 22.1 % (34.6-47.8)
[2017-05-03] MEDS: FENTANYL PF 100 MCG/2ML IV PRN ×2 (17:45→17:59)
[2017-05-03] MEDS ORDERED: OXYcodone 5 MG/5 ML ORAL.SOL UDC ONE (17:52)
[2017-05-03] MEDS ORDERED: HYDROmorphone PCA 30 MG/30 ML IV PRN (19:30)
[2017-05-03] MEDS: SODIUM CHLORIDE 0.9% 1,000 ML IV SCH (20:28)
[2017-05-03] MEDS: LOVASTATIN 40 MG TABLET PO SCH (21:00)
[2017-05-03 22:15] LABS: HEMOGLOBIN 7.7 g/dL (11.7-16.4)
[2017-05-03] MEDS: CEFTRIAXONE PMX 2GM/50ML 50 ML IV SCH (22:41)
[2017-05-04 00:29] VITALS: BP 103/36
[2017-05-04 01:02] LABS: HEMATOCRIT 26.1 % (34.6-47.8); HEMOGLOBIN 8.1 g/dL (11.7-16.4)
[2017-05-04] MEDS: HYDROmorphone 1 MG/ML, 1ML IV PRN ×2 (02:15→02:34)
[2017-05-04 04:47] LABS: HEMATOCRIT 26.4 % (34.6-47.8); HEMOGLOBIN 8.6 g/dL (11.7-16.4); WHITE BLOOD COUNT 12.7 x10^3/uL (3.4-10)
[2017-05-04 05:00] LABS: BLOOD UREA NITROGEN 66 mg/dL (7-18)
[2017-05-04] MEDS: MORPHINE SULFATE 4 MG/ML, 1ML IVPush PRN (05:01)
[2017-05-04] MEDS: HEPARIN 5,000 UNITS/ML, 1ML SQ SCH ×3 (05:03→20:00)
[2017-05-04 06:40] VITALS: BP 111/60
[2017-05-04] MEDS: INSULIN ASPART 100 UNITS/ML, PEN SQ-INSULIN SCH ×4 (07:00→21:00)
[2017-05-04] MEDS: SEVELAMER 800MG TABLET PO SCH ×4 (07:00→16:00)
[2017-05-04] MEDS: LEVOTHYROXINE 100 MCG TABLET PO SCH (07:39)
[2017-05-04] MEDS: PARICALCITOL 2 MCG/ML, 1ML IVPush SCH (08:29)
[2017-05-04] MEDS: CINACALCET 30 MG TABLET PO SCH (08:30)
[2017-05-04] MEDS: SENNA/DOCUSATE TABLET PO SCH (08:30)
[2017-05-04] MEDS: ALLOPURINOL 100 MG TABLET PO SCH (08:30)
[2017-05-04] MEDS: SODIUM CHLORIDE FLUSH 10ML SYR IVF SCH ×2 (08:31→21:19)
[2017-05-04] MEDS: OMEPRAZOLE 20 MG CAPSULE.DR PO SCH (08:31)
[2017-05-04] MEDS: ATENOLOL 25 MG TABLET PO SCH ×2 (08:32→21:00)
[2017-05-04] MEDS: MULTIVITAMINS/MINERALS TABLET PO SCH (08:32)
[2017-05-04] MEDS: CHOLECALCIFEROL 1,000 UNIT TABLET PO SCH (08:33)
[2017-05-04] MEDS: MINOXIDIL 2.5 MG TABLET PO SCH (08:35)
[2017-05-04] MEDS: FLUTICASONE NASAL SPRAY 16GM NAS SCH (09:00)
[2017-05-04] MEDS ORDERED: HYDROmorphone PCA 30 MG/30 ML IV PRN (09:30)
[2017-05-04] MEDS: ALBUTEROL SULFATE 2.5 MG/3 ML NPPB SCH ×2 (09:47→19:19)
[2017-05-04 13:18] LABS: HEMATOCRIT 24.1 % (34.6-47.8); HEMOGLOBIN 7.9 g/dL (11.7-16.4)
[2017-05-04 17:13] LABS: HEMATOCRIT 26.6 % (34.6-47.8); HEMOGLOBIN 8.6 g/dL (11.7-16.4)
[2017-05-04 20:28] VITALS: BP 109/69
[2017-05-04] MEDS: LOVASTATIN 40 MG TABLET PO SCH (21:18)
[2017-05-04] MEDS: CEFTRIAXONE PMX 2GM/50ML 50 ML IV SCH (21:18)
[2017-05-05] MEDS: SODIUM CHLORIDE 0.9% 1,000 ML IV SCH (00:17)
[2017-05-05 01:10] VITALS: BP 119/59
[2017-05-05] MEDS: HEPARIN 5,000 UNITS/ML, 1ML SQ SCH ×3 (04:00→20:00)
[2017-05-05] MEDS ORDERED: HYDROmorphone PCA 30 MG/30 ML IV PRN ×2 (04:00→13:30)
[2017-05-05 05:15] VITALS: BP 109/84
[2017-05-05] MEDS: LEVOTHYROXINE 100 MCG TABLET PO SCH (06:00)
[2017-05-05] MEDS: INSULIN ASPART 100 UNITS/ML, PEN SQ-INSULIN SCH ×4 (07:00→21:00)
[2017-05-05] MEDS: CHOLECALCIFEROL 1,000 UNIT TABLET PO SCH (08:37)
[2017-05-05] MEDS: MINOXIDIL 2.5 MG TABLET PO SCH (08:37)
[2017-05-05] MEDS: ATENOLOL 25 MG TABLET PO SCH ×2 (08:37→22:59)
[2017-05-05] MEDS: ALLOPURINOL 100 MG TABLET PO SCH (08:37)
[2017-05-05] MEDS: FLUTICASONE NASAL SPRAY 16GM NAS SCH (08:37)
[2017-05-05] MEDS: MULTIVITAMINS/MINERALS TABLET PO SCH (08:38)
[2017-05-05] MEDS: OMEPRAZOLE 20 MG CAPSULE.DR PO SCH (08:38)
[2017-05-05] MEDS: CINACALCET 30 MG TABLET PO SCH (08:38)
[2017-05-05] MEDS: SENNA/DOCUSATE TABLET PO SCH (08:38)
[2017-05-05] MEDS: SEVELAMER 800MG TABLET PO SCH ×3 (08:38→16:00)
[2017-05-05] MEDS: SODIUM CHLORIDE FLUSH 10ML SYR IVF SCH ×2 (08:39→21:00)
[2017-05-05 09:30] VITALS: BP 101/48
[2017-05-05] MEDS: ALBUTEROL SULFATE 2.5 MG/3 ML NPPB SCH ×2 (10:40→21:00)
[2017-05-05] MEDS ORDERED: HYDROmorphone 1 MG/ML, 1ML IV PRN (13:30)
[2017-05-05 14:33] VITALS: BP 103/45
[2017-05-05] MEDS: D5%-0.9% NACL 1,000 ML IV SCH (15:45)
[2017-05-05] MEDS ORDERED: GLUCAGON 1 MG IM PRN (19:30)
[2017-05-05] MEDS ORDERED: DEXTROSE 4 GM TAB.CHEW PO PRN (19:30)
[2017-05-05] MEDS ORDERED: DEXTROSE 50%, 50ML SYRINGE IVPush PRN (19:30)
[2017-05-05] MEDS ORDERED: IRON SUCROSE COMPLEX 100MG/5ML IV SCH (19:30)
[2017-05-05 20:55] VITALS: BP 95/54
[2017-05-05] MEDS: LOVASTATIN 40 MG TABLET PO SCH (22:59)
[2017-05-06] MEDS: HEPARIN 5,000 UNITS/ML, 1ML SQ SCH ×3 (04:00→20:00)
[2017-05-06 05:03] VITALS: BP 140/82
[2017-05-06 05:15] LABS: HEMATOCRIT 23.5 % (34.6-47.8); HEMOGLOBIN 7.7 g/dL (11.7-16.4); WHITE BLOOD COUNT 12.8 x10^3/uL (3.4-10)
[2017-05-06 05:35] LABS: ASPARTATE AMINO TRANSFERASE 28 U/L (15-37); BLOOD UREA NITROGEN 59 mg/dL (7-18)
[2017-05-06] MEDS: LEVOTHYROXINE 100 MCG TABLET PO SCH (06:07)
[2017-05-06] MEDS: INSULIN ASPART 100 UNITS/ML, PEN SQ-INSULIN SCH (07:00)
[2017-05-06] MEDS: SEVELAMER 800MG TABLET PO SCH ×2 (07:00→16:17)
[2017-05-06 07:14] LABS: DIFF TOTAL CELLS COUNTED 100 CELL DIFF; VERIFY COUNTS? YES
[2017-05-06 07:20] LABS: ANISOCYTOSIS 1+; HYPOCHROMIA 1+; MICROCYTOSIS 1+
[2017-05-06] MEDS: OMEPRAZOLE 20 MG CAPSULE.DR PO SCH (07:30)
[2017-05-06 08:09] VITALS: BP 116/50
[2017-05-06] MEDS: ALBUTEROL SULFATE 2.5 MG/3 ML NPPB SCH ×2 (09:50→20:46)
[2017-05-06] MEDS ORDERED: HYDROmorphone 1 MG/ML, 1ML IV ONE (10:00)
[2017-05-06] MEDS: MULTIVITAMINS/MINERALS TABLET PO SCH (10:04)
[2017-05-06] MEDS: FLUTICASONE NASAL SPRAY 16GM NAS SCH (10:05)
[2017-05-06] MEDS: SODIUM CHLORIDE FLUSH 10ML SYR IVF SCH ×2 (10:05→20:43)
[2017-05-06] MEDS: SENNA/DOCUSATE TABLET PO SCH (10:06)
[2017-05-06] MEDS: MINOXIDIL 2.5 MG TABLET PO SCH (10:08)
[2017-05-06] MEDS: CHOLECALCIFEROL 1,000 UNIT TABLET PO SCH (10:08)
[2017-05-06] MEDS: CINACALCET 30 MG TABLET PO SCH (10:09)
[2017-05-06] MEDS: ALLOPURINOL 100 MG TABLET PO SCH (10:09)
[2017-05-06] MEDS: ATENOLOL 25 MG TABLET PO SCH ×2 (10:09→20:52)
[2017-05-06] MEDS: KETOROLAC 30 MG/1 ML IVPush PRN ×2 (12:30→20:42)
[2017-05-06] MEDS: D5%-0.9% NACL 1,000 ML IV SCH (12:35)
[2017-05-06] MEDS ORDERED: SEVELAMER 800MG TABLET PO SCH (16:00)
[2017-05-06 19:14] VITALS: BP 108/45
[2017-05-06] MEDS: LOVASTATIN 40 MG TABLET PO SCH (20:43)
[2017-05-06 20:54] VITALS: BP 113/52
[2017-05-07 00:35] VITALS: BP 124/44
[2017-05-07] MEDS: HEPARIN 5,000 UNITS/ML, 1ML SQ SCH ×3 (03:19→20:00)
[2017-05-07 04:19] LABS: HEMATOCRIT 26.3 % (34.6-47.8); HEMOGLOBIN 8.5 g/dL (11.7-16.4); WHITE BLOOD COUNT 13.7 x10^3/uL (3.4-10)
[2017-05-07 04:27] LABS: BLOOD UREA NITROGEN 74 mg/dL (7-18)
[2017-05-07] MEDS: LEVOTHYROXINE 100 MCG TABLET PO SCH (05:55)
[2017-05-07] MEDS: OMEPRAZOLE 20 MG CAPSULE.DR PO SCH (07:30)
[2017-05-07] MEDS: SEVELAMER 800MG TABLET PO SCH ×3 (08:00→16:17)
[2017-05-07 08:15] VITALS: BP 121/40
[2017-05-07] MEDS: SENNA/DOCUSATE TABLET PO SCH (08:24)
[2017-05-07] MEDS: CHOLECALCIFEROL 1,000 UNIT TABLET PO SCH (08:25)
[2017-05-07] MEDS: FLUTICASONE NASAL SPRAY 16GM NAS SCH (08:26)
[2017-05-07] MEDS: ALLOPURINOL 100 MG TABLET PO SCH (08:26)
[2017-05-07] MEDS: PARICALCITOL 2 MCG/ML, 1ML IVPush SCH (08:30)
[2017-05-07] MEDS: KETOROLAC 30 MG/1 ML IVPush PRN ×2 (08:37→15:08)
[2017-05-07] MEDS: D5%-0.9% NACL 1,000 ML IV SCH (08:37)
[2017-05-07] MEDS: ATENOLOL 25 MG TABLET PO SCH ×2 (09:00→21:00)
[2017-05-07] MEDS: SODIUM CHLORIDE FLUSH 10ML SYR IVF SCH ×2 (09:00→21:00)
[2017-05-07] MEDS: MINOXIDIL 2.5 MG TABLET PO SCH (09:00)
[2017-05-07] MEDS: CINACALCET 30 MG TABLET PO SCH (09:00)
[2017-05-07] MEDS: MULTIVITAMINS/MINERALS TABLET PO SCH (09:00)
[2017-05-07] MEDS: ALBUTEROL SULFATE 2.5 MG/3 ML NPPB SCH ×2 (09:45→20:45)
[2017-05-07] MEDS ORDERED: LEVOFLOXACIN/PMX 500MG/100ML 100 ML IV ONE (11:00)
[2017-05-07] MEDS: LOVASTATIN 40 MG TABLET PO SCH (21:00)
[2017-05-08 02:17] VITALS: BP 110/48
[2017-05-08] MEDS: HEPARIN 5,000 UNITS/ML, 1ML SQ SCH ×3 (04:00→20:00)
[2017-05-08] MEDS: OXYcodone 5 MG/5 ML ORAL.SOL UDC PO PRN ×2 (04:32→08:46)
[2017-05-08] MEDS: D5%-0.9% NACL 1,000 ML IV SCH (04:35)
[2017-05-08 05:09] LABS: HEMATOCRIT 23.5 % (34.6-47.8); HEMOGLOBIN 7.5 g/dL (11.7-16.4); WHITE BLOOD COUNT 10.5 x10^3/uL (3.4-10)
[2017-05-08 05:22] LABS: ASPARTATE AMINO TRANSFERASE 23 U/L (15-37); BLOOD UREA NITROGEN 48 mg/dL (7-18)
[2017-05-08 05:26] LABS: FERRITIN 110.2 ng/mL (8-252); TOTAL IRON BINDING CAPACITY 187 mcg/dL (250-450)
[2017-05-08] MEDS: LEVOTHYROXINE 100 MCG TABLET PO SCH (05:48)
[2017-05-08 06:30] VITALS: BP 112/47
[2017-05-08] MEDS: OMEPRAZOLE 20 MG CAPSULE.DR PO SCH (07:30)
[2017-05-08] MEDS: SEVELAMER 800MG TABLET PO SCH ×3 (08:00→16:35)
[2017-05-08] MEDS: MULTIVITAMINS/MINERALS TABLET PO SCH (08:37)
[2017-05-08] MEDS: CINACALCET 30 MG TABLET PO SCH (08:37)
[2017-05-08] MEDS: SODIUM CHLORIDE FLUSH 10ML SYR IVF SCH ×2 (08:47→20:52)
[2017-05-08] MEDS: SENNA/DOCUSATE TABLET PO SCH (08:47)
[2017-05-08] MEDS: ALLOPURINOL 100 MG TABLET PO SCH (08:47)
[2017-05-08] MEDS: FLUTICASONE NASAL SPRAY 16GM NAS SCH (08:47)
[2017-05-08] MEDS: ATENOLOL 25 MG TABLET PO SCH ×2 (08:47→20:52)
[2017-05-08] MEDS: MINOXIDIL 2.5 MG TABLET PO SCH (08:47)
[2017-05-08] MEDS: CHOLECALCIFEROL 1,000 UNIT TABLET PO SCH (08:47)
[2017-05-08] MEDS: ALBUTEROL SULFATE 2.5 MG/3 ML NPPB SCH ×2 (09:00→19:23)
[2017-05-08] MEDS: IRON SUCROSE COMPLEX 100MG/5ML IV SCH (11:56)
[2017-05-08 12:31] VITALS: BP 102/45
[2017-05-08] MEDS: OXYcodone IR 5MG TABLET PO PRN ×2 (15:42→20:51)
[2017-05-08 19:40] VITALS: BP 105/47
[2017-05-08] MEDS: LOVASTATIN 40 MG TABLET PO SCH (20:51)
[2017-05-09 02:00] VITALS: BP 107/58
[2017-05-09] MEDS: OXYcodone IR 5MG TABLET PO PRN ×5 (02:08→23:04)
[2017-05-09] MEDS: HEPARIN 5,000 UNITS/ML, 1ML SQ SCH ×3 (04:00→20:00)
[2017-05-09] MEDS: LEVOTHYROXINE 100 MCG TABLET PO SCH (05:02)
[2017-05-09 05:35] LABS: HEMATOCRIT 24.7 % (34.6-47.8); WHITE BLOOD COUNT 9.4 x10^3/uL (3.4-10)
[2017-05-09 05:45] LABS: BLOOD UREA NITROGEN 53 mg/dL (7-18)
[2017-05-09] MEDS: OMEPRAZOLE 20 MG CAPSULE.DR PO SCH (07:30)
[2017-05-09] MEDS: SEVELAMER 800MG TABLET PO SCH ×3 (08:00→16:24)
[2017-05-09] MEDS: PARICALCITOL 2 MCG/ML, 1ML IVPush SCH (08:30)
[2017-05-09] MEDS: IRON SUCROSE COMPLEX 100MG/5ML IV SCH (08:40)
[2017-05-09] MEDS: FLUTICASONE NASAL SPRAY 16GM NAS SCH (08:41)
[2017-05-09] MEDS: SODIUM CHLORIDE FLUSH 10ML SYR IVF SCH ×2 (08:41→21:00)
[2017-05-09] MEDS: SENNA/DOCUSATE TABLET PO SCH (08:42)
[2017-05-09] MEDS: CINACALCET 30 MG TABLET PO SCH (08:43)
[2017-05-09] MEDS: CHOLECALCIFEROL 1,000 UNIT TABLET PO SCH (08:44)
[2017-05-09] MEDS: ALLOPURINOL 100 MG TABLET PO SCH (08:45)
[2017-05-09] MEDS: ATENOLOL 25 MG TABLET PO SCH ×2 (09:00→21:00)
[2017-05-09] MEDS: ALBUTEROL SULFATE 2.5 MG/3 ML NPPB SCH ×2 (09:00→21:42)
[2017-05-09] MEDS: MINOXIDIL 2.5 MG TABLET PO SCH (09:00)
[2017-05-09] MEDS: MULTIVITAMINS/MINERALS TABLET PO SCH (09:00)
[2017-05-09 09:24] VITALS: BP 96/58
[2017-05-09] MEDS ORDERED: LEVOFLOXACIN/PMX 250MG/50ML 50 ML IV SCH (11:00)
[2017-05-09] MEDS: DARBEPOETIN 100 MCG/ML SQ SCH (13:58)
[2017-05-09 16:05] VITALS: BP 126/55
[2017-05-09] MEDS: ACETAMINOPHEN 325 MG TABLET PO PRN (16:20)
[2017-05-09] MEDS: ALBUMIN HUMAN 25% 100 ML IV PRN (18:00)
[2017-05-09] MEDS ORDERED: MAGNESIUM CITRATE 300ML ORAL SOL PO ONE (18:30)
[2017-05-09] MEDS: LACTULOSE 10 GM/15 ML UDC PO SCH ×2 (21:02→21:05)
[2017-05-09] MEDS: LOVASTATIN 40 MG TABLET PO SCH (21:02)
[2017-05-09 21:56] VITALS: BP 149/50
[2017-05-10 02:34] VITALS: BP_SYST 106; BP_SYST 98; BP_DIAS 33; BP_DIAS 44
[2017-05-10] MEDS: HEPARIN 5,000 UNITS/ML, 1ML SQ SCH ×3 (04:00→20:00)
[2017-05-10] MEDS: OXYcodone IR 5MG TABLET PO PRN ×4 (04:11→21:18)
[2017-05-10 05:28] LABS: HEMATOCRIT 24.1 % (34.6-47.8); HEMOGLOBIN 7.6 g/dL (11.7-16.4); WHITE BLOOD COUNT 8.1 x10^3/uL (3.4-10)
[2017-05-10 05:36] LABS: BLOOD UREA NITROGEN 36 mg/dL (7-18)
[2017-05-10] MEDS: LEVOTHYROXINE 100 MCG TABLET PO SCH (06:17)
[2017-05-10] MEDS: ALBUTEROL SULFATE 2.5 MG/3 ML NPPB SCH ×2 (06:34→19:00)
[2017-05-10 07:16] VITALS: BP 124/49
[2017-05-10] MEDS: SEVELAMER 800MG TABLET PO SCH (08:00)
[2017-05-10] MEDS: OMEPRAZOLE 20 MG CAPSULE.DR PO SCH (08:00)
[2017-05-10] MEDS: MULTIVITAMINS/MINERALS TABLET PO SCH (09:00)
[2017-05-10] MEDS: CINACALCET 30 MG TABLET PO SCH (09:00)
[2017-05-10] MEDS ORDERED: LACTULOSE 10 GM/15 ML UDC PO SCH (09:00)
[2017-05-10] MEDS: IRON SUCROSE COMPLEX 100MG/5ML IV SCH (09:00)
[2017-05-10] MEDS: FLUTICASONE NASAL SPRAY 16GM NAS SCH (09:44)
[2017-05-10] MEDS: SENNA/DOCUSATE TABLET PO SCH (09:47)
[2017-05-10] MEDS: SODIUM CHLORIDE FLUSH 10ML SYR IVF SCH ×2 (09:53→21:00)
[2017-05-10] MEDS: LACTULOSE 10 GM/15 ML UDC PO SCH ×2 (09:56→21:00)
[2017-05-10] MEDS: CHOLECALCIFEROL 1,000 UNIT TABLET PO SCH (09:58)
[2017-05-10] MEDS: ATENOLOL 25 MG TABLET PO SCH ×2 (09:58→21:19)
[2017-05-10] MEDS: ALLOPURINOL 100 MG TABLET PO SCH (09:58)
[2017-05-10] MEDS: MINOXIDIL 2.5 MG TABLET PO SCH (10:01)
[2017-05-10] MEDS: CALCIUM ACETATE 667 MG CAPSULE PO SCH ×2 (12:50→17:00)
[2017-05-10 14:16] VITALS: BP 116/52
[2017-05-10] MEDS: LOVASTATIN 40 MG TABLET PO SCH (21:00)
[2017-05-10 21:19] VITALS: BP 137/60
[2017-05-11 02:00] VITALS: BP 103/43
[2017-05-11] MEDS: HEPARIN 5,000 UNITS/ML, 1ML SQ SCH ×3 (04:00→20:00)
[2017-05-11] MEDS: LEVOTHYROXINE 100 MCG TABLET PO SCH (05:00)
[2017-05-11] MEDS: OXYcodone IR 5MG TABLET PO PRN ×4 (05:00→20:35)
[2017-05-11 05:13] LABS: HEMATOCRIT 25.2 % (34.6-47.8); HEMOGLOBIN 8.1 g/dL (11.7-16.4); WHITE BLOOD COUNT 8.3 x10^3/uL (3.4-10)
[2017-05-11 05:21] LABS: BLOOD UREA NITROGEN 42 mg/dL (7-18)
[2017-05-11 06:47] VITALS: BP 109/56
[2017-05-11] MEDS: ALBUTEROL SULFATE 2.5 MG/3 ML NPPB SCH ×2 (07:25→19:55)
[2017-05-11] MEDS: OMEPRAZOLE 20 MG CAPSULE.DR PO SCH (07:30)
[2017-05-11] MEDS: CALCIUM ACETATE 667 MG CAPSULE PO SCH ×3 (08:00→17:00)
[2017-05-11] MEDS: PARICALCITOL 2 MCG/ML, 1ML IVPush SCH (08:30)
[2017-05-11] MEDS: CINACALCET 30 MG TABLET PO SCH (09:00)
[2017-05-11] MEDS: ATENOLOL 25 MG TABLET PO SCH ×2 (09:00→20:36)
[2017-05-11] MEDS: MINOXIDIL 2.5 MG TABLET PO SCH (09:00)
[2017-05-11] MEDS: SENNA/DOCUSATE TABLET PO SCH (09:00)
[2017-05-11] MEDS: LACTULOSE 10 GM/15 ML UDC PO SCH ×2 (09:00→20:36)
[2017-05-11] MEDS: IRON SUCROSE COMPLEX 100MG/5ML IV SCH (11:01)
[2017-05-11] MEDS: SODIUM CHLORIDE FLUSH 10ML SYR IVF SCH ×2 (11:01→20:36)
[2017-05-11] MEDS: FLUTICASONE NASAL SPRAY 16GM NAS SCH (11:01)
[2017-05-11] MEDS: MULTIVITAMINS/MINERALS TABLET PO SCH (11:02)
[2017-05-11] MEDS: CHOLECALCIFEROL 1,000 UNIT TABLET PO SCH (11:03)
[2017-05-11] MEDS: ALLOPURINOL 100 MG TABLET PO SCH (11:04)
[2017-05-11 14:30] VITALS: BP 107/57
[2017-05-11 20:10] VITALS: BP 108/45
[2017-05-11] MEDS: LOVASTATIN 40 MG TABLET PO SCH (20:35)
[2017-05-12] MEDS: HEPARIN 5,000 UNITS/ML, 1ML SQ SCH ×3 (03:59→20:00)
[2017-05-12] MEDS: LEVOTHYROXINE 100 MCG TABLET PO SCH (04:57)
[2017-05-12 05:11] LABS: HEMATOCRIT 23.3 % (34.6-47.8); HEMOGLOBIN 7.4 g/dL (11.7-16.4); WHITE BLOOD COUNT 7.5 x10^3/uL (3.4-10)
[2017-05-12 05:21] LABS: BLOOD UREA NITROGEN 29 mg/dL (7-18)
[2017-05-12 05:23] LABS: ASPARTATE AMINO TRANSFERASE 9 U/L (15-37)
[2017-05-12 05:45] VITALS: BP 103/43
[2017-05-12] MEDS: OMEPRAZOLE 20 MG CAPSULE.DR PO SCH (07:30)
[2017-05-12] MEDS: CALCIUM ACETATE 667 MG CAPSULE PO SCH ×3 (08:00→17:00)
[2017-05-12 08:37] VITALS: BP 123/59
[2017-05-12] MEDS: MULTIVITAMINS/MINERALS TABLET PO SCH (09:00)
[2017-05-12] MEDS: ALBUTEROL SULFATE 2.5 MG/3 ML NPPB SCH ×2 (09:00→20:13)
[2017-05-12] MEDS: FLUTICASONE NASAL SPRAY 16GM NAS SCH (09:00)
[2017-05-12] MEDS: CINACALCET 30 MG TABLET PO SCH (09:00)
[2017-05-12] MEDS: OXYcodone IR 5MG TABLET PO PRN ×5 (09:31→19:42)
[2017-05-12] MEDS: GUAIFENESIN/DM 200-20MG, 10ML UDC PO PRN ×2 (09:32→15:32)
[2017-05-12] MEDS: IRON SUCROSE COMPLEX 100MG/5ML IV SCH (09:37)
[2017-05-12] MEDS: SODIUM CHLORIDE FLUSH 10ML SYR IVF SCH ×2 (09:42→21:06)
[2017-05-12] MEDS: LACTULOSE 10 GM/15 ML UDC PO SCH ×2 (09:42→21:00)
[2017-05-12] MEDS: ALLOPURINOL 100 MG TABLET PO SCH (09:44)
[2017-05-12] MEDS: ATENOLOL 25 MG TABLET PO SCH ×2 (09:44→21:00)
[2017-05-12] MEDS: MINOXIDIL 2.5 MG TABLET PO SCH (09:45)
[2017-05-12] MEDS: CHOLECALCIFEROL 1,000 UNIT TABLET PO SCH (09:46)
[2017-05-12] MEDS: SENNA/DOCUSATE TABLET PO SCH (09:48)
[2017-05-12 14:00] VITALS: BP 104/48
[2017-05-12] MEDS ORDERED: ACETAMINOPHEN 325 MG TABLET PO PRN (16:30)
[2017-05-12] MEDS ORDERED: ALBUTEROL SULFATE INH PRN (16:30)
[2017-05-12] MEDS ORDERED: DOCUSATE 100 MG CAPSULE PO PRN (16:30)
[2017-05-12] MEDS ORDERED: DEXTROSE 50%, 50ML SYRINGE IVPush PRN (16:30)
[2017-05-12] MEDS ORDERED: ALBUTEROL SULFATE 2.5 MG/3 ML NPPB PRN (16:30)
[2017-05-12] MEDS ORDERED: HYDROmorphone 1 MG/ML, 1ML IV PRN (16:30)
[2017-05-12] MEDS ORDERED: DEXTROSE 4 GM TAB.CHEW PO PRN (16:30)
[2017-05-12 18:27] VITALS: BP 94/57
[2017-05-12] MEDS: LOVASTATIN 40 MG TABLET PO SCH (21:05)
[2017-05-13 01:42] VITALS: BP 108/63
[2017-05-13] MEDS: GUAIFENESIN/DM 200-20MG, 10ML UDC PO PRN ×2 (01:59→09:21)
[2017-05-13] MEDS: HEPARIN 5,000 UNITS/ML, 1ML SQ SCH ×3 (04:00→20:00)
[2017-05-13] MEDS: LEVOTHYROXINE 100 MCG TABLET PO SCH (05:03)
[2017-05-13 05:20] LABS: HEMATOCRIT 24.8 % (34.6-47.8); WHITE BLOOD COUNT 7.5 x10^3/uL (3.4-10)
[2017-05-13 05:28] LABS: ASPARTATE AMINO TRANSFERASE 12 U/L (15-37); BLOOD UREA NITROGEN 35 mg/dL (7-18)
[2017-05-13 07:18] VITALS: BP 108/54
[2017-05-13] MEDS: OMEPRAZOLE 20 MG CAPSULE.DR PO SCH (07:30)
[2017-05-13] MEDS: CALCIUM ACETATE 667 MG CAPSULE PO SCH ×3 (08:00→17:00)
[2017-05-13] MEDS: MULTIVITAMINS/MINERALS TABLET PO SCH (09:00)
[2017-05-13] MEDS: CINACALCET 30 MG TABLET PO SCH (09:00)
[2017-05-13] MEDS: LACTULOSE 10 GM/15 ML UDC PO SCH ×2 (09:00→21:00)
[2017-05-13] MEDS: SODIUM CHLORIDE FLUSH 10ML SYR IVF SCH ×2 (09:00→21:00)
[2017-05-13] MEDS: MINOXIDIL 2.5 MG TABLET PO SCH (09:04)
[2017-05-13] MEDS: SENNA/DOCUSATE TABLET PO SCH (09:04)
[2017-05-13] MEDS: ATENOLOL 25 MG TABLET PO SCH ×2 (09:05→21:00)
[2017-05-13] MEDS: CHOLECALCIFEROL 1,000 UNIT TABLET PO SCH (09:05)
[2017-05-13] MEDS: ALLOPURINOL 100 MG TABLET PO SCH (09:06)
[2017-05-13] MEDS: OXYcodone IR 5MG TABLET PO PRN ×3 (09:21→21:50)
[2017-05-13] MEDS: FLUTICASONE NASAL SPRAY 16GM NAS SCH (09:21)
[2017-05-13] MEDS: ALBUTEROL SULFATE 2.5 MG/3 ML NPPB SCH ×2 (11:27→20:00)
[2017-05-13 21:36] VITALS: BP 93/38
[2017-05-13] MEDS: LOVASTATIN 40 MG TABLET PO SCH (21:50)
[2017-05-14 02:28] VITALS: BP 83/56
[2017-05-14] MEDS: HEPARIN 5,000 UNITS/ML, 1ML SQ SCH ×3 (04:00→19:40)
[2017-05-14] MEDS: LEVOTHYROXINE 100 MCG TABLET PO SCH (04:53)
[2017-05-14] MEDS: OXYcodone IR 5MG TABLET PO PRN ×3 (05:02→19:41)
[2017-05-14 05:30] LABS: HEMATOCRIT 24.1 % (34.6-47.8); HEMOGLOBIN 7.9 g/dL (11.7-16.4); WHITE BLOOD COUNT 7.4 x10^3/uL (3.4-10)
[2017-05-14 05:55] LABS: ASPARTATE AMINO TRANSFERASE 10 U/L (15-37); BLOOD UREA NITROGEN 45 mg/dL (7-18)
[2017-05-14] MEDS: OMEPRAZOLE 20 MG CAPSULE.DR PO SCH (07:30)
[2017-05-14 07:34] VITALS: BP 102/78
[2017-05-14] MEDS: GUAIFENESIN/DM 200-20MG, 10ML UDC PO PRN (07:42)
[2017-05-14] MEDS: ALBUMIN HUMAN 25% 100 ML IV PRN (07:52)
[2017-05-14] MEDS: CALCIUM ACETATE 667 MG CAPSULE PO SCH ×3 (08:00→17:00)
[2017-05-14] MEDS: MULTIVITAMINS/MINERALS TABLET PO SCH (08:29)
[2017-05-14] MEDS: LACTULOSE 10 GM/15 ML UDC PO SCH ×2 (08:29→19:40)
[2017-05-14] MEDS: CINACALCET 30 MG TABLET PO SCH (08:29)
[2017-05-14] MEDS: PARICALCITOL 2 MCG/ML, 1ML IVPush SCH (08:30)
[2017-05-14] MEDS: ATENOLOL 25 MG TABLET PO SCH ×3 (09:00→19:42)
[2017-05-14] MEDS: SODIUM CHLORIDE FLUSH 10ML SYR IVF SCH ×2 (09:00→21:00)
[2017-05-14] MEDS: MINOXIDIL 2.5 MG TABLET PO SCH (09:00)
[2017-05-14] MEDS: ALBUTEROL SULFATE 2.5 MG/3 ML NPPB SCH ×2 (09:00→18:40)
[2017-05-14] MEDS: ALBUMIN HUMAN 25% 50 ML IV PRN (09:52)
[2017-05-14] MEDS: FLUTICASONE NASAL SPRAY 16GM NAS SCH (10:32)
[2017-05-14] MEDS: CHOLECALCIFEROL 1,000 UNIT TABLET PO SCH (10:33)
[2017-05-14] MEDS: SENNA/DOCUSATE TABLET PO SCH (10:33)
[2017-05-14] MEDS: ALLOPURINOL 100 MG TABLET PO SCH (10:34)
[2017-05-14 15:33] VITALS: BP 138/43
[2017-05-14] MEDS: LOVASTATIN 40 MG TABLET PO SCH (19:41)
[2017-05-14 19:59] VITALS: BP 100/55
[2017-05-14] MEDS: ONDANSETRON 2MG/ML, 2ML IVPush PRN (22:39)
[2017-05-15] MEDS: OXYcodone IR 5MG TABLET PO PRN ×4 (02:33→20:02)
[2017-05-15 02:37] VITALS: BP 95/50
[2017-05-15] MEDS: HEPARIN 5,000 UNITS/ML, 1ML SQ SCH ×3 (04:00→19:38)
[2017-05-15 05:35] LABS: HEMOGLOBIN 7.1 g/dL (11.7-16.4)
[2017-05-15] MEDS: LEVOTHYROXINE 100 MCG TABLET PO SCH (05:53)
[2017-05-15 06:03] LABS: BLOOD UREA NITROGEN 31 mg/dL (7-18)
[2017-05-15 06:22] LABS: HEMATOCRIT 22.4 % (34.6-47.8)
[2017-05-15] MEDS: OMEPRAZOLE 20 MG CAPSULE.DR PO SCH (07:30)
[2017-05-15] MEDS: CALCIUM ACETATE 667 MG CAPSULE PO SCH ×3 (08:00→17:00)
[2017-05-15] MEDS: ALBUTEROL SULFATE 2.5 MG/3 ML NPPB SCH ×2 (08:16→21:00)
[2017-05-15 08:43] VITALS: BP 108/47
[2017-05-15] MEDS: FLUTICASONE NASAL SPRAY 16GM NAS SCH (08:45)
[2017-05-15] MEDS: SENNA/DOCUSATE TABLET PO SCH (08:46)
[2017-05-15] MEDS: CHOLECALCIFEROL 1,000 UNIT TABLET PO SCH (08:46)
[2017-05-15] MEDS: ALLOPURINOL 100 MG TABLET PO SCH (08:47)
[2017-05-15] MEDS: CINACALCET 30 MG TABLET PO SCH (08:51)
[2017-05-15] MEDS: MINOXIDIL 2.5 MG TABLET PO SCH (08:51)
[2017-05-15] MEDS: MULTIVITAMINS/MINERALS TABLET PO SCH (08:51)
[2017-05-15] MEDS: SODIUM CHLORIDE FLUSH 10ML SYR IVF SCH ×2 (08:51→20:10)
[2017-05-15] MEDS: LACTULOSE 10 GM/15 ML UDC PO SCH ×2 (08:51→19:39)
[2017-05-15] MEDS: ATENOLOL 25 MG TABLET PO SCH ×2 (08:52→20:02)
[2017-05-15] MEDS: GUAIFENESIN 200 MG TABLET PO SCH ×3 (10:54→20:02)
[2017-05-15 14:15] VITALS: BP 87/43
[2017-05-15] MEDS: LOVASTATIN 40 MG TABLET PO SCH (20:02)
[2017-05-16] MEDS: HEPARIN 5,000 UNITS/ML, 1ML SQ SCH ×3 (02:59→20:00)
[2017-05-16] MEDS: OXYcodone IR 5MG TABLET PO PRN ×4 (03:03→22:31)
[2017-05-16 03:21] VITALS: BP 100/50
[2017-05-16 03:26] LABS: HEMATOCRIT 25.9 % (34.6-47.8); HEMOGLOBIN 8.1 g/dL (11.7-16.4); WHITE BLOOD COUNT 8.9 x10^3/uL (3.4-10)
[2017-05-16 03:37] LABS: BLOOD UREA NITROGEN 37 mg/dL (7-18)
[2017-05-16 03:41] LABS: ASPARTATE AMINO TRANSFERASE 11 U/L (15-37)
[2017-05-16] MEDS: LEVOTHYROXINE 100 MCG TABLET PO SCH (05:32)
[2017-05-16] MEDS: OMEPRAZOLE 20 MG CAPSULE.DR PO SCH (07:30)
[2017-05-16 07:51] VITALS: BP 123/56
[2017-05-16] MEDS: CALCIUM ACETATE 667 MG CAPSULE PO SCH ×3 (08:00→17:00)
[2017-05-16] MEDS: PARICALCITOL 2 MCG/ML, 1ML IVPush SCH (08:03)
[2017-05-16] MEDS: FLUTICASONE NASAL SPRAY 16GM NAS SCH (08:03)
[2017-05-16] MEDS: LACTULOSE 10 GM/15 ML UDC PO SCH ×2 (08:03→21:00)
[2017-05-16] MEDS: MINOXIDIL 2.5 MG TABLET PO SCH (08:04)
[2017-05-16] MEDS: MULTIVITAMINS/MINERALS TABLET PO SCH (08:05)
[2017-05-16] MEDS: GUAIFENESIN 200 MG TABLET PO SCH ×3 (08:05→21:00)
[2017-05-16] MEDS: CINACALCET 30 MG TABLET PO SCH (08:06)
[2017-05-16] MEDS: ATENOLOL 25 MG TABLET PO SCH ×2 (08:07→21:00)
[2017-05-16] MEDS: CHOLECALCIFEROL 1,000 UNIT TABLET PO SCH (08:07)
[2017-05-16] MEDS: ALLOPURINOL 100 MG TABLET PO SCH (08:07)
[2017-05-16] MEDS: SENNA/DOCUSATE TABLET PO SCH (08:11)
[2017-05-16] MEDS: SODIUM CHLORIDE FLUSH 10ML SYR IVF SCH ×2 (08:12→21:00)
[2017-05-16] MEDS: GUAIFENESIN/DM 200-20MG, 10ML UDC PO PRN (10:00)
[2017-05-16] MEDS: ALBUTEROL SULFATE 2.5 MG/3 ML NPPB SCH ×2 (10:14→20:02)
[2017-05-16 14:00] VITALS: BP_SYST 174; BP_SYST 91; BP_DIAS 72; BP_DIAS 93
[2017-05-16 15:33] VITALS: BP 91/52
[2017-05-16 15:46] VITALS: BP 96/49
[2017-05-16 15:50] VITALS: BP 91/44
[2017-05-16] MEDS: DARBEPOETIN 100 MCG/ML SQ SCH (21:56)
[2017-05-16] MEDS: LOVASTATIN 40 MG TABLET PO SCH (21:56)
[2017-05-17 01:42] VITALS: BP 98/49
[2017-05-17 02:26] VITALS: BP 146/82
[2017-05-17] MEDS: HEPARIN 5,000 UNITS/ML, 1ML SQ SCH ×3 (03:59→20:00)
[2017-05-17] MEDS: OXYcodone IR 5MG TABLET PO PRN ×3 (04:33→18:48)
[2017-05-17 04:52] LABS: HEMATOCRIT 25.1 % (34.6-47.8); WHITE BLOOD COUNT 10.4 x10^3/uL (3.4-10)
[2017-05-17 04:58] LABS: BLOOD UREA NITROGEN 25 mg/dL (7-18)
[2017-05-17] MEDS: LEVOTHYROXINE 100 MCG TABLET PO SCH (06:18)
[2017-05-17 07:27] VITALS: BP 102/54
[2017-05-17] MEDS: OMEPRAZOLE 20 MG CAPSULE.DR PO SCH (07:30)
[2017-05-17] MEDS: CALCIUM ACETATE 667 MG CAPSULE PO SCH ×3 (08:00→16:17)
[2017-05-17] MEDS: SENNA/DOCUSATE TABLET PO SCH (08:47)
[2017-05-17] MEDS: CHOLECALCIFEROL 1,000 UNIT TABLET PO SCH (08:47)
[2017-05-17] MEDS: ALLOPURINOL 100 MG TABLET PO SCH (08:47)
[2017-05-17] MEDS: MULTIVITAMINS/MINERALS TABLET PO SCH (08:47)
[2017-05-17] MEDS: FLUTICASONE NASAL SPRAY 16GM NAS SCH (08:48)
[2017-05-17] MEDS: SODIUM CHLORIDE FLUSH 10ML SYR IVF SCH ×2 (08:49→21:00)
[2017-05-17] MEDS: ATENOLOL 25 MG TABLET PO SCH (08:50)
[2017-05-17] MEDS: GUAIFENESIN 200 MG TABLET PO SCH ×3 (08:50→21:00)
[2017-05-17] MEDS: CINACALCET 30 MG TABLET PO SCH (08:50)
[2017-05-17] MEDS: LACTULOSE 10 GM/15 ML UDC PO SCH ×2 (08:50→21:00)
[2017-05-17] MEDS: GUAIFENESIN/DM 200-20MG, 10ML UDC PO PRN ×2 (08:57→23:54)
[2017-05-17] MEDS: ALBUTEROL SULFATE 2.5 MG/3 ML NPPB SCH ×2 (09:00→21:55)
[2017-05-17 12:57] VITALS: BP 99/63
[2017-05-17 20:50] VITALS: BP 89/42
[2017-05-17] MEDS: LOVASTATIN 40 MG TABLET PO SCH (21:00)
[2017-05-18 01:19] VITALS: BP 120/51
[2017-05-18] MEDS: HEPARIN 5,000 UNITS/ML, 1ML SQ SCH ×3 (03:10→20:00)
[2017-05-18 04:25] LABS: BLOOD UREA NITROGEN 38 mg/dL (7-18)
[2017-05-18 04:28] LABS: HEMATOCRIT 25.9 % (34.6-47.8); HEMOGLOBIN 8.3 g/dL (11.7-16.4); WHITE BLOOD COUNT 10.4 x10^3/uL (3.4-10)
[2017-05-18] MEDS: LEVOTHYROXINE 100 MCG TABLET PO SCH (06:12)
[2017-05-18] MEDS: OXYcodone IR 5MG TABLET PO PRN ×3 (06:15→20:59)
[2017-05-18] MEDS: GUAIFENESIN/DM 200-20MG, 10ML UDC PO PRN (06:20)
[2017-05-18] MEDS: OMEPRAZOLE 20 MG CAPSULE.DR PO SCH (07:30)
[2017-05-18 07:44] VITALS: BP 97/50
[2017-05-18] MEDS: CALCIUM ACETATE 667 MG CAPSULE PO SCH ×3 (08:00→17:00)
[2017-05-18] MEDS: ALLOPURINOL 100 MG TABLET PO SCH (08:05)
[2017-05-18] MEDS: CHOLECALCIFEROL 1,000 UNIT TABLET PO SCH (08:05)
[2017-05-18] MEDS: FLUTICASONE NASAL SPRAY 16GM NAS SCH (08:05)
[2017-05-18] MEDS: SODIUM CHLORIDE FLUSH 10ML SYR IVF SCH ×2 (08:06→21:00)
[2017-05-18] MEDS: GUAIFENESIN 200 MG TABLET PO SCH ×3 (08:07→20:59)
[2017-05-18] MEDS: LACTULOSE 10 GM/15 ML UDC PO SCH ×2 (08:07→21:00)
[2017-05-18] MEDS: SENNA/DOCUSATE TABLET PO SCH (08:08)
[2017-05-18] MEDS: MULTIVITAMINS/MINERALS TABLET PO SCH (08:08)
[2017-05-18] MEDS: CINACALCET 30 MG TABLET PO SCH (08:08)
[2017-05-18] MEDS: PARICALCITOL 2 MCG/ML, 1ML IVPush SCH (08:30)
[2017-05-18] MEDS: ALBUTEROL SULFATE 2.5 MG/3 ML NPPB SCH ×2 (09:00→18:45)
[2017-05-18 13:36] VITALS: BP 102/56
[2017-05-18 19:36] VITALS: BP 92/48
[2017-05-18] MEDS: LOVASTATIN 40 MG TABLET PO SCH (20:58)
[2017-05-19] MEDS: OXYcodone IR 5MG TABLET PO PRN ×5 (01:03→22:34)
[2017-05-19] MEDS: GUAIFENESIN/DM 200-20MG, 10ML UDC PO PRN ×4 (01:03→22:37)
[2017-05-19 02:00] VITALS: BP 118/49
[2017-05-19] MEDS: HEPARIN 5,000 UNITS/ML, 1ML SQ SCH ×3 (04:00→20:00)
[2017-05-19] MEDS: LEVOTHYROXINE 100 MCG TABLET PO SCH (05:49)
[2017-05-19 06:14] LABS: HEMATOCRIT 27.8 % (34.6-47.8); HEMOGLOBIN 8.8 g/dL (11.7-16.4); WHITE BLOOD COUNT 12.4 x10^3/uL (3.4-10)
[2017-05-19 06:19] LABS: BLOOD UREA NITROGEN 31 mg/dL (7-18)
[2017-05-19] MEDS: OMEPRAZOLE 20 MG CAPSULE.DR PO SCH (07:30)
[2017-05-19 08:22] VITALS: BP 110/50
[2017-05-19] MEDS: ALLOPURINOL 100 MG TABLET PO SCH (08:51)
[2017-05-19] MEDS: MULTIVITAMINS/MINERALS TABLET PO SCH (08:51)
[2017-05-19] MEDS: CHOLECALCIFEROL 1,000 UNIT TABLET PO SCH (08:51)
[2017-05-19] MEDS: FLUTICASONE NASAL SPRAY 16GM NAS SCH (08:51)
[2017-05-19] MEDS: SENNA/DOCUSATE TABLET PO SCH (08:51)
[2017-05-19] MEDS: CALCIUM ACETATE 667 MG CAPSULE PO SCH ×3 (08:51→16:26)
[2017-05-19] MEDS: GUAIFENESIN 200 MG TABLET PO SCH ×3 (08:59→21:00)
[2017-05-19] MEDS: CINACALCET 30 MG TABLET PO SCH (08:59)
[2017-05-19] MEDS: SODIUM CHLORIDE FLUSH 10ML SYR IVF SCH ×2 (08:59→22:36)
[2017-05-19] MEDS: LACTULOSE 10 GM/15 ML UDC PO SCH ×2 (08:59→21:00)
[2017-05-19] MEDS: ALBUTEROL SULFATE 2.5 MG/3 ML NPPB SCH ×3 (09:01→19:32)
[2017-05-19 14:19] VITALS: BP 113/56
[2017-05-19 20:00] VITALS: BP 100/67
[2017-05-19] MEDS: LOVASTATIN 40 MG TABLET PO SCH (22:33)
[2017-05-20 03:38] VITALS: BP 104/52
[2017-05-20] MEDS: OXYcodone IR 5MG TABLET PO PRN ×5 (03:54→23:52)
[2017-05-20] MEDS: HEPARIN 5,000 UNITS/ML, 1ML SQ SCH ×3 (03:55→20:00)
[2017-05-20 06:16] LABS: BLOOD UREA NITROGEN 42 mg/dL (7-18)
[2017-05-20] MEDS: OMEPRAZOLE 20 MG CAPSULE.DR PO SCH (07:30)
[2017-05-20] MEDS: CALCIUM ACETATE 667 MG CAPSULE PO SCH ×3 (08:00→11:38)
[2017-05-20 08:15] VITALS: BP 112/63
[2017-05-20] MEDS: LEVOTHYROXINE 100 MCG TABLET PO SCH (08:20)
[2017-05-20] MEDS: SODIUM CHLORIDE FLUSH 10ML SYR IVF SCH ×2 (08:23→19:38)
[2017-05-20] MEDS: LACTULOSE 10 GM/15 ML UDC PO SCH ×2 (08:24→21:00)
[2017-05-20] MEDS: MULTIVITAMINS/MINERALS TABLET PO SCH (08:24)
[2017-05-20] MEDS: GUAIFENESIN 200 MG TABLET PO SCH ×3 (08:24→21:00)
[2017-05-20] MEDS: CINACALCET 30 MG TABLET PO SCH (08:25)
[2017-05-20] MEDS: GUAIFENESIN/DM 200-20MG, 10ML UDC PO PRN ×3 (09:24→22:28)
[2017-05-20] MEDS: FLUTICASONE NASAL SPRAY 16GM NAS SCH (09:26)
[2017-05-20] MEDS: CHOLECALCIFEROL 1,000 UNIT TABLET PO SCH (09:26)
[2017-05-20] MEDS: SENNA/DOCUSATE TABLET PO SCH (09:26)
[2017-05-20] MEDS: ALLOPURINOL 100 MG TABLET PO SCH (09:27)
[2017-05-20 14:16] VITALS: BP 92/52
[2017-05-20 14:45] VITALS: BP 83/35
[2017-05-20 15:25] VITALS: BP 90/50
[2017-05-20] MEDS: ALBUTEROL SULFATE 2.5 MG/3 ML NPPB SCH (19:16)
[2017-05-20 19:30] VITALS: BP 104/45
[2017-05-20] MEDS: LOVASTATIN 40 MG TABLET PO SCH (19:37)
[2017-05-20] MEDS ORDERED: DEXTROSE 4 GM TAB.CHEW PO PRN (21:00)
[2017-05-20] MEDS ORDERED: HYDROmorphone 1 MG/ML, 1ML IV PRN (21:00)
[2017-05-20] MEDS ORDERED: ACETAMINOPHEN 325 MG TABLET PO PRN (21:00)
[2017-05-20] MEDS ORDERED: DEXTROSE 50%, 50ML SYRINGE IVPush PRN (21:00)
[2017-05-20] MEDS: ONDANSETRON 2MG/ML, 2ML IVPush PRN (21:22)
[2017-05-21] MEDS: HEPARIN 5,000 UNITS/ML, 1ML SQ SCH ×2 (01:51→10:35)
[2017-05-21] MEDS: GUAIFENESIN/DM 200-20MG, 10ML UDC PO PRN ×2 (04:22→10:26)
[2017-05-21] MEDS: OXYcodone IR 5MG TABLET PO PRN ×3 (04:22→12:58)
[2017-05-21 04:29] VITALS: BP 98/43
[2017-05-21 05:03] LABS: BLOOD UREA NITROGEN 52 mg/dL (7-18)
[2017-05-21 07:00] VITALS: BP 102/48
[2017-05-21] MEDS: CALCIUM ACETATE 667 MG CAPSULE PO SCH ×3 (07:01→17:00)
[2017-05-21] MEDS: OMEPRAZOLE 20 MG CAPSULE.DR PO SCH (07:01)
[2017-05-21] MEDS: LACTULOSE 10 GM/15 ML UDC PO SCH (07:01)
[2017-05-21] MEDS: CINACALCET 30 MG TABLET PO SCH (07:02)
[2017-05-21] MEDS: LEVOTHYROXINE 100 MCG TABLET PO SCH (07:31)
[2017-05-21] MEDS: ALLOPURINOL 100 MG TABLET PO SCH (07:32)
[2017-05-21] MEDS: MULTIVITAMINS/MINERALS TABLET PO SCH (07:32)
[2017-05-21] MEDS: SENNA/DOCUSATE TABLET PO SCH (07:32)
[2017-05-21] MEDS: GUAIFENESIN 200 MG TABLET PO SCH ×2 (07:32→16:00)
[2017-05-21] MEDS: CHOLECALCIFEROL 1,000 UNIT TABLET PO SCH (07:32)
[2017-05-21] MEDS: FLUTICASONE NASAL SPRAY 16GM NAS SCH (07:33)
[2017-05-21] MEDS: SODIUM CHLORIDE FLUSH 10ML SYR IVF SCH (07:34)
[2017-05-21] MEDS: PARICALCITOL 2 MCG/ML, 1ML IVPush SCH (07:49)
[2017-05-21] MEDS: ALBUMIN HUMAN 25% 100 ML IV PRN (09:15)
[2017-05-21] MEDS: ALBUMIN HUMAN 25% 50 ML IV PRN ×2 (09:43→11:25)
[2017-05-21] MEDS: ALBUTEROL SULFATE 2.5 MG/3 ML NPPB SCH (10:00)
[2017-05-21 12:50] VITALS: BP 100/46
[2017-05-22 09:57] LABS: HEP B SURF. AB < 3.1 mIU/mL (0.0-10.0)
== END 2017-05-21 17:32 | disposition home or self-care (01) | DRG 853 ==
LOC: ED 08:50 → EDIP 10:31 → 4EST 11:26 → 4WST 04-21 18:28 → CCU 05-03 18:48 → 4WST 05-04 11:24
PROVIDERS: ADMIT Hospitalist; ATTEND Hospitalist
PROC: 30233N1 Transfusion of Nonautologous Red Blood Cells into Peripheral Vein, Percutaneous Approach (ICD-10-PCS; 2017-05-03)
PROC: 05743DZ Dilation of Left Innominate Vein with Intraluminal Device, Percutaneous Approach (ICD-10-PCS; 2017-05-03)
PROC: 0Y6C0Z3 Detachment at Right Upper Leg, Low, Open Approach (ICD-10-PCS; principal; 2017-05-03 13:30)
PROC: B51W1ZZ Fluoroscopy of Dialysis Shunt/Fistula using Low Osmolar Contrast (ICD-10-PCS; 2017-05-03 13:30)
DX: A41.9 Sepsis, unspecified organism (principal); J96.21 Acute and chronic respiratory failure with hypoxia; I50.43 Acute on chronic combined systolic (congestive) and diastolic (congestive) heart failure; L89.150 Pressure ulcer of sacral region, unstageable; N17.9 Acute kidney failure, unspecified; G93.40 Encephalopathy, unspecified; L89.159 Pressure ulcer of sacral region, unspecified stage; N18.6 End stage renal disease; E11.52 Type 2 diabetes mellitus with diabetic peripheral angiopathy with gangrene; E46 Unspecified protein-calorie malnutrition; D62 Acute posthemorrhagic anemia; I13.2 Hypertensive heart and chronic kidney disease with heart failure and with stage 5 chronic kidney disease, or end stage renal disease; N25.81 Secondary hyperparathyroidism of renal origin; T82.590A Other mechanical complication of surgically created arteriovenous fistula, initial encounter; F05 Delirium due to known physiological condition; J44.1 Chronic obstructive pulmonary disease with (acute) exacerbation; L03.115 Cellulitis of right lower limb; N32.1 Vesicointestinal fistula; E11.22 Type 2 diabetes mellitus with diabetic chronic kidney disease; E87.5 Hyperkalemia; E78.5 Hyperlipidemia, unspecified; D50.9 Iron deficiency anemia, unspecified; D63.1 Anemia in chronic kidney disease; N25.0 Renal osteodystrophy; Z99.81 Dependence on supplemental oxygen; Z99.2 Dependence on renal dialysis; E89.0 Postprocedural hypothyroidism; G47.33 Obstructive sleep apnea (adult) (pediatric); I25.10 Atherosclerotic heart disease of native coronary artery without angina pectoris; I48.2 Chronic atrial fibrillation; I73.9 Peripheral vascular disease, unspecified; E11.42 Type 2 diabetes mellitus with diabetic polyneuropathy; I95.81 Postprocedural hypotension; E66.01 Morbid (severe) obesity due to excess calories; Z68.27 Body mass index [BMI] 27.0-27.9, adult; I87.2 Venous insufficiency (chronic) (peripheral); K43.5 Parastomal hernia without obstruction or gangrene; M10.9 Gout, unspecified; M24.561 Contracture, right knee; Y71.2 Prosthetic and other implants, materials and accessory cardiovascular devices associated with adverse incidents; Z86.14 Personal history of Methicillin resistant Staphylococcus aureus infection; Z86.73 Personal history of transient ischemic attack (TIA), and cerebral infarction without residual deficits; Z87.440 Personal history of urinary (tract) infections; Z87.11 Personal history of peptic ulcer disease; Z88.0 Allergy status to penicillin; Z87.891 Personal history of nicotine dependence; Z91.19 Patient's noncompliance with other medical treatment and regimen; Z89.512 Acquired absence of left leg below knee; Z93.3 Colostomy status; Z88.2 Allergy status to sulfonamides; Z88.8 Allergy status to other drugs, medicaments and biological substances
CPT/HCPCS: 36415; 71010; 75710; 80048; 80053; 80069; 80202; 82140; 82272; 82306; 82728; 82962; 83036; 83540; 83550; 83605; 83735; 83880; 83970; 84100; 84132; 84439; 84443; 84484; 84550; 85014; 85018; 85025; 85610; 85651; 85730; 86140; 86706; 86850; 86900; 86923; 87040; 87070; 87077; 87081; 87186; 87205; 87340; 93005; 94640; 96374; 96375; C1725; C1729; J0696; J0881; J1170; J1644; J1756; J1815; J1885; J1940; J1956; J2250; J2405; J2501; J2543; J2704; J2720; J3010; J3370; J3490; J7042; J7613; J7620; P9047; Q0162; Q9966; C1751; C1769; C1876; C1894; J7030; J7040; P9016; Q0177